=== PATIENT | male | born 1980 | race Caucasian/White ===

== ENCOUNTER 2018-06-10 12:35 | Emergency (ER) | payer MEDICAID, MEDICARE ==
[~2018-06-10] VITALS: Ht 180.3 cm; Wt 102.8 kg
[2018-06-10 12:54] VITALS: BP 110/69
== END 2018-06-10 13:16 | disposition home or self-care (01) ==
LOC: ED 12:45
DX: S01.01XD Laceration without foreign body of scalp, subsequent encounter (principal); X58.XXXD Exposure to other specified factors, subsequent encounter
CPT/HCPCS: 99281

== ENCOUNTER 2018-10-13 17:14 | Emergency (ER) | payer MEDICAID ==
[~2018-10-13] VITALS: Ht 180.3 cm; Wt 104.0 kg
[2018-10-13 17:17] VITALS: BP 130/93
== END 2018-10-13 19:23 | disposition home or self-care (01) ==
LOC: ED 19:05
DX: K02.9 Dental caries, unspecified (principal); K04.7 Periapical abscess without sinus; F17.200 Nicotine dependence, unspecified, uncomplicated
CPT/HCPCS: 99283

== ENCOUNTER 2018-11-04 23:07 | Emergency (ER) | payer MEDICAID ==
[~2018-11-04] VITALS: Ht 180.3 cm; Wt 99.0 kg
[2018-11-04 23:10] VITALS: BP 127/83
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
== END 2018-11-05 01:00 | disposition home or self-care (01) ==
LOC: ED 11-05 00:33
DX: F10.129 Alcohol abuse with intoxication, unspecified (principal); Z72.9 Problem related to lifestyle, unspecified; F20.9 Schizophrenia, unspecified; F17.200 Nicotine dependence, unspecified, uncomplicated
CPT/HCPCS: 99283

== ENCOUNTER 2019-04-11 20:00 | Inpatient (IN) | payer MEDICARE ==
[~2019-04-11] VITALS: Ht 180.3 cm; Wt 100.0 kg
[~2019-04-11 20:00] MED LIST: DIVA500T2 PO
[2019-04-11] MEDS ORDERED: SODIUM CHLORIDE 0.9% 1,000ML IVBOLUS ONE ×2 (20:30→22:30)
[2019-04-11] MEDS ORDERED: SODIUM CHLORIDE FLUSH 10ML SYR IVF ONE (20:30)
--- NOTE | 2019-04-11 20:32 | NUR ---
PT BROUGHT BACK TO T4 FROM TRIAGE. PT DIAPHORETIC WITH LOW BP. PT IN HOSPITAL GOWN. IV AND FLUIDS INFUSING. LABS DRAWN WITH IV START. STRAIGHT CATH DONE FOR URINE SAMPLE. PT BP HAS IMPROVED, SEE CHARTED. WILL CONTINUE TO MONITOR. BILAT BEDRAILS UP.
[2019-04-11 20:54] LABS: CULTURE INDICATED? YES; MICROSCOPIC INDICATED
[2019-04-11 20:54] LABS: ALANINE AMINOTRANSFERASE 225 U/L (12-78); ALBUMIN 3.4 g/dL (3.4-5.0); ANION GAP 10 mmol/L (5-15); CALCIUM 8.2 mg/dL (8.5-10.1); CHLORIDE 100 mmol/L (98-107); CREATININE 2.18 mg/dL (0.7-1.3)
--- NOTE | 2019-04-11 20:55 | NUR ---
pt going to ct.
[2019-04-11 20:57] LABS: ALKALINE PHOSPHATASE 362 U/L (45-117); BILIRUBIN,TOTAL 4.2 mg/dL (0.2-1.0); MEAN CORPUSCULAR HEMOGLOBIN 30.8 pg (27.5-34.5); MEAN CORPUSCULAR HGB CONC 33.7 g/dL (33.2-36.2); MEAN CORPUSCULAR VOLUME 91.2 fL (81-97); RED BLOOD COUNT 5.57 x10^6/uL (4.38-5.82); RED CELL DISTRIBUTION WIDTH 14.3 % (9.4-14.8); TOTAL PROTEIN 7.6 g/dL (6.4-8.2)
[2019-04-11 20:59] LABS: SALICYLATE LEVEL < 1.7 mg/dL (2.8-20.0)
[2019-04-11 21:00] LABS: AMPHETAMINE SCREEN, URINE Negative (Negative); BARBITURATE SCREEN, URINE Negative (Negative); BENZODIAZEPINE SCREEN, URINE Negative (Negative); CANNABINOID SCREEN, URINE Negative (Negative); COCAINE SCREEN, URINE Negative (Negative); METHADONE SCREEN, URINE Negative (Negative); OPIATE SCREEN, URINE Negative (Negative)
[2019-04-11 21:06] LABS: BASOPHILS # (AUTO) 0.01 x10^3/uL (0-0.1); BASOPHILS % (AUTO) 0 % (0-1); EOSINOPHILS # (AUTO) 0.01 x10^3/uL (0-0.4); EOSINOPHILS % (AUTO) 0 % (1-7); LYMPHOCYTES % (AUTO) 6 % (22-44); MD SCAN; MONOCYTES # (AUTO) 0.14 x10^3/uL (0.2-0.8); MONOCYTES % (AUTO) 3 % (2-9); NEUTROPHILS # (AUTO) 4.44 x10^3/uL (1.8-6.8); NEUTROPHILS % (AUTO) 91 % (42-75); PLATELET COUNT 81 x10^3/uL (130-400)
--- NOTE | 2019-04-11 21:15 | NUR ---
PT BACK FROM CT. PT FOUND TO HAVE BEDBUGS IN CT. CONTACT PRECAUTIONS PLACED ON T4. VITALS RESUMED.
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
[2019-04-11] MEDS ORDERED: CEFTRIAXONE PMX 1GM/50ML 50 ML IV ONE (21:30)
--- NOTE | 2019-04-11 21:50 | NUR ---
PT BP TRENDING BACK DOWN, SEE VITALS. ERP AWARE, PT IN [place] POSITION. BLOOD CULTURES HAVE BEEN DRAWN. ALL PT BELONGINGS HAVE BEEN BAGGED.
[2019-04-11] MEDS ORDERED: CEFTRIAXONE PMX 1GM/50ML 50 ML ONE (21:52)
[2019-04-11] MEDS ORDERED: ONDANSETRON 2MG/ML, 2ML ONE (21:52)
[2019-04-11] MEDS ORDERED: ONDANSETRON 2MG/ML, 2ML IVPush ONE (22:00)
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
--- NOTE | 2019-04-11 22:50 | NUR ---
PT GIVEN URINAL. PT VOIDED ABOUT 600CC OF [place] URINE.
--- NOTE | 2019-04-11 23:19 | NUR ---
REPORT TO TANISHA HUMPHRIES
--- NOTE | 2019-04-11 23:20 | NUR ---
PT BP 84/49, SEE CHARTED. ERP MADE AWARE. NO ORDERS AT THIS TIME. CONTINUE TO MONITOR PT.
--- NOTE | 2019-04-11 23:23 | NUR ---
TANISHA HUMPHRIES CALLED TO SAY PT UNABLE TO GO UP WITHOUT SHOWER. CHARGE MADE AWARE AND PT AWARE HE NEEDS TO SHOWER BEFORE GOING UP. HOSPITALIST IN ROOM WITH PT.
[2019-04-12] VITALS (7 sets, daily range): BP systolic 84–105; BP diastolic 51–70
[2019-04-12] MEDS ORDERED: HEPARIN 5,000 UNITS/ML, 1ML SQ SCH
[2019-04-12] MEDS ORDERED: THIAMINE 200 MG in DEXTROSE 5% 50 ML IVPB ONE
[2019-04-12] MEDS ORDERED: CEFTRIAXONE PMX 1GM/50ML 50 ML IV SCH
[2019-04-12 00:17] LABS: INTERNATIONAL NORMALIZED RATIO 1.18 (0.93-1.1); PROTHROMBIN TIME 12.3 Seconds (9.6-11.5)
[2019-04-12] MEDS ORDERED: PERMETHRIN CRM 5%, 60GM TP SCH (01:00)
[2019-04-12] MEDS: SODIUM CHLORIDE 0.9% 1,000 ML IV SCH ×2 (02:35→08:38)
[2019-04-12 04:54] LABS: CREATININE,URINE RANDOM 68.7 mg/dL
[2019-04-12 06:47] LABS: ALBUMIN 2.8 g/dL (3.4-5.0); ANION GAP 11 mmol/L (5-15); CALCIUM 7.3 mg/dL (8.5-10.1); CHLORIDE 104 mmol/L (98-107)
[2019-04-12 06:51] LABS: ALANINE AMINOTRANSFERASE 210 U/L (12-78); ALKALINE PHOSPHATASE 282 U/L (45-117); CREATININE 1.47 mg/dL (0.7-1.3); TOTAL PROTEIN 6.1 g/dL (6.4-8.2)
[2019-04-12 07:52] LABS: MEAN CORPUSCULAR HEMOGLOBIN 30.8 pg (27.5-34.5); MEAN CORPUSCULAR HGB CONC 33.7 g/dL (33.2-36.2); MEAN CORPUSCULAR VOLUME 91.4 fL (81-97); MEAN PLATELET VOLUME 10.5 fL (7.4-10.4); PLATELET COUNT 61 x10^3/uL (130-400); RED BLOOD COUNT 5.05 x10^6/uL (4.38-5.82); RED CELL DISTRIBUTION WIDTH 14.6 % (9.4-14.8)
[2019-04-12 07:53] LABS: MD YES
[2019-04-12 07:56] LABS: BANDS%(MANUAL) 42 % (0-7); LYMPH#(MANUAL) 0.23 x10^3/uL (1-3.4); LYMPHS% (MANUAL) 6 % (22-44); MONOS#(MANUAL) 0.11 x10^3/uL (0.3-2.7); MONOS% (MANUAL) 3 % (2-9); SEG#(MANUAL) 1.86 x10^3/uL (1.8-6.8); SEGS% (MANUAL) 49 % (42-75)
[2019-04-12 07:57] LABS: <PLATELET ESTIMATE> DECREASED; <PLT MORPHOLOGY> NORMAL PLT MORPH; <RBC MORPHOLOGY> NORMAL
[2019-04-12] MEDS: MULTIVITAMINS/MINERALS TABLET PO SCH (08:38)
[2019-04-12] MEDS: FOLIC ACID 1 MG TABLET PO SCH (09:00)
[2019-04-12] MEDS: LACTATED RINGERS 1,000 ML IV SCH ×2 (11:47→18:01)
[2019-04-12] MEDS: OXYcodone IR 5MG TABLET PO PRN ×2 (14:49→20:19)
[2019-04-12] MEDS: CEFTRIAXONE PMX 2GM/50ML 50 ML IV SCH (14:50)
[2019-04-13] MEDS: OXYcodone IR 5MG TABLET PO PRN ×3 (00:31→20:29)
[2019-04-13 02:01] VITALS: BP 93/58
[2019-04-13] MEDS: ONDANSETRON 2MG/ML, 2ML IVPush PRN ×2 (03:35→22:35)
[2019-04-13 06:04] LABS: ALANINE AMINOTRANSFERASE 183 U/L (12-78); ALBUMIN 2.5 g/dL (3.4-5.0); ANION GAP 10 mmol/L (5-15); CALCIUM 7.2 mg/dL (8.5-10.1); CHLORIDE 99 mmol/L (98-107); CREATININE 1.12 mg/dL (0.7-1.3)
[2019-04-13 06:06] LABS: ALKALINE PHOSPHATASE 256 U/L (45-117); BILIRUBIN,TOTAL 4.1 mg/dL (0.2-1.0); TOTAL PROTEIN 5.5 g/dL (6.4-8.2)
[2019-04-13 06:18] LABS: MEAN CORPUSCULAR HEMOGLOBIN 30.6 pg (27.5-34.5); MEAN PLATELET VOLUME 11.1 fL (7.4-10.4); PLATELET COUNT 65 x10^3/uL (130-400); RED BLOOD COUNT 4.65 x10^6/uL (4.38-5.82); RED CELL DISTRIBUTION WIDTH 14.3 % (9.4-14.8)
[2019-04-13 06:19] LABS: MD YES
[2019-04-13 06:22] LABS: BAND#(MANUAL) 1.33 x10^3/uL; BANDS%(MANUAL) 39 % (0-7); REACTIVE LYMPHS # (MANUAL) 0.07 x10^3/uL (0-0); REACTIVE LYMPHS % (MANUAL) 2 % (0-0); SEGS% (MANUAL) 47 % (42-75)
[2019-04-13 06:23] LABS: <PLATELET ESTIMATE> DECREASED; <RBC MORPHOLOGY> NORMAL; LARGE PLATELETS 1+; LYMPH#(MANUAL) 0.37 x10^3/uL (1-3.4); LYMPHS% (MANUAL) 11 % (22-44); MONOS#(MANUAL) 0.03 x10^3/uL (0.3-2.7); MONOS% (MANUAL) 1 % (2-9)
[2019-04-13 06:24] LABS: PMNS WITH VACUOLES 1+
[2019-04-13 06:58] VITALS: BP 100/65
[2019-04-13] MEDS: THIAMINE 100MG TABLET PO SCH (08:39)
[2019-04-13] MEDS: FOLIC ACID 1 MG TABLET PO SCH (08:39)
[2019-04-13] MEDS: MULTIVITAMINS/MINERALS TABLET PO SCH (08:39)
[2019-04-13] MEDS: SODIUM CHLORIDE 0.9% 1,000 ML IV SCH (08:40)
[2019-04-13] MEDS ORDERED: LORazepam 2 MG/ML, 1ML IVPush PRN (10:30)
[2019-04-13 13:42] VITALS: BP 98/64
[2019-04-13] MEDS ORDERED: POTASSIUM CHLORIDE 20 MEQ TAB.ER.PRT PO ONE (14:30)
[2019-04-13] MEDS: CEFTRIAXONE PMX 2GM/50ML 50 ML IV SCH (15:34)
[2019-04-13] MEDS ORDERED: OMNIPAQUE 350 MG/ML, 100ML BOTTLE ONE (16:57)
[2019-04-13 19:15] VITALS: BP 105/66
[2019-04-14] MEDS: OXYcodone IR 5MG TABLET PO PRN ×3 (00:22→14:30)
[2019-04-14] MEDS ORDERED: DIPHENHYDRAMINE 25 MG CAPSULE PO ONE (00:30)
[2019-04-14 01:12] VITALS: BP 94/58
[2019-04-14] MEDS: SODIUM CHLORIDE 0.9% 1,000 ML IV SCH ×2 (03:30→13:03)
[2019-04-14 06:59] VITALS: BP 97/59
[2019-04-14 07:05] LABS: MEAN CORPUSCULAR HEMOGLOBIN 30.5 pg (27.5-34.5); MEAN CORPUSCULAR HGB CONC 33.9 g/dL (33.2-36.2); MEAN CORPUSCULAR VOLUME 89.8 fL (81-97); RED BLOOD COUNT 4.76 x10^6/uL (4.38-5.82); RED CELL DISTRIBUTION WIDTH 14.8 % (9.4-14.8)
[2019-04-14 07:11] LABS: ALBUMIN 2.4 g/dL (3.4-5.0); CALCIUM 7.5 mg/dL (8.5-10.1); CHLORIDE 98 mmol/L (98-107)
[2019-04-14 07:17] LABS: ALANINE AMINOTRANSFERASE 188 U/L (12-78); ALKALINE PHOSPHATASE 301 U/L (45-117); ANION GAP 10 mmol/L (5-15); BILIRUBIN,TOTAL 5.9 mg/dL (0.2-1.0); CREATININE 0.75 mg/dL (0.7-1.3); TOTAL PROTEIN 5.4 g/dL (6.4-8.2)
[2019-04-14 07:31] LABS: MD YES; MEAN PLATELET VOLUME 10.3 fL (7.4-10.4); PLATELET COUNT 68 x10^3/uL (130-400)
[2019-04-14 07:37] LABS: BAND#(MANUAL) 0.62 x10^3/uL; BANDS%(MANUAL) 16 % (0-7); LYMPHS% (MANUAL) 23 % (22-44); MONOS#(MANUAL) 0.47 x10^3/uL (0.3-2.7); MONOS% (MANUAL) 12 % (2-9); REACTIVE LYMPHS # (MANUAL) 0.04 x10^3/uL (0-0); REACTIVE LYMPHS % (MANUAL) 1 % (0-0); SEG#(MANUAL) 1.87 x10^3/uL (1.8-6.8); SEGS% (MANUAL) 48 % (42-75)
[2019-04-14 07:38] LABS: <PLATELET ESTIMATE> DECREASED; <PLT MORPHOLOGY> NORMAL PLT MORPH; <RBC MORPHOLOGY> NORMAL
[2019-04-14] MEDS: THIAMINE 100MG TABLET PO SCH (08:05)
[2019-04-14] MEDS: FOLIC ACID 1 MG TABLET PO SCH (08:05)
[2019-04-14] MEDS: MULTIVITAMINS/MINERALS TABLET PO SCH (08:05)
[2019-04-14] MEDS ORDERED: POTASSIUM CHLORIDE 20 MEQ TAB.ER.PRT PO ONE (10:00)
[2019-04-14] MEDS ORDERED: GABAPENTIN 100 MG CAPSULE PO PRN (10:00)
[2019-04-14 12:25] VITALS: BP 102/68
[2019-04-14] MEDS: CEFTRIAXONE PMX 2GM/50ML 50 ML IV SCH (16:28)
[2019-04-14 19:21] VITALS: BP 106/67
[2019-04-15 01:39] VITALS: BP 98/62
[2019-04-15] MEDS: SODIUM CHLORIDE 0.9% 1,000 ML IV SCH ×2 (05:45→19:44)
[2019-04-15 06:22] LABS: MEAN CORPUSCULAR HEMOGLOBIN 30.6 pg (27.5-34.5); MEAN CORPUSCULAR HGB CONC 34.3 g/dL (33.2-36.2); MEAN CORPUSCULAR VOLUME 89.2 fL (81-97); MEAN PLATELET VOLUME 10.3 fL (7.4-10.4); PLATELET COUNT 72 x10^3/uL (130-400); RED BLOOD COUNT 4.65 x10^6/uL (4.38-5.82); RED CELL DISTRIBUTION WIDTH 14.7 % (9.4-14.8)
[2019-04-15 06:25] LABS: ALBUMIN 2.4 g/dL (3.4-5.0); ANION GAP 6 mmol/L (5-15); CALCIUM 7.6 mg/dL (8.5-10.1); CHLORIDE 98 mmol/L (98-107)
[2019-04-15 06:29] LABS: ALANINE AMINOTRANSFERASE 250 U/L (12-78); ALKALINE PHOSPHATASE 375 U/L (45-117); BILIRUBIN,TOTAL 5.9 mg/dL (0.2-1.0); CREATININE 0.78 mg/dL (0.7-1.3); TOTAL PROTEIN 5.5 g/dL (6.4-8.2)
[2019-04-15 06:55] LABS: MD YES
[2019-04-15 06:58] LABS: <PLATELET ESTIMATE> DECREASED; <PLT MORPHOLOGY> NORMAL PLT MORPH; <RBC MORPHOLOGY> NORMAL; BASOS#(MANUAL) 0.07 x10^3/uL (0-0.1); BASOS% (MANUAL) 2 % (0-1); LYMPH#(MANUAL) 1.66 x10^3/uL (1-3.4); LYMPHS% (MANUAL) 46 % (22-44); MONOS#(MANUAL) 0.07 x10^3/uL (0.3-2.7); MONOS% (MANUAL) 2 % (2-9); SEGS% (MANUAL) 50 % (42-75)
[2019-04-15] MEDS ORDERED: LORazepam 2 MG/ML, 1ML IVPush ONE (08:00)
[2019-04-15 08:22] VITALS: BP 104/66
[2019-04-15] MEDS: MULTIVITAMINS/MINERALS TABLET PO SCH (11:43)
[2019-04-15] MEDS: FOLIC ACID 1 MG TABLET PO SCH (11:43)
[2019-04-15] MEDS: THIAMINE 100MG TABLET PO SCH (11:43)
[2019-04-15 12:12] VITALS: BP 105/65
[2019-04-15] MEDS: OXYcodone IR 5MG TABLET PO PRN (17:35)
[2019-04-15 18:40] VITALS: BP 102/69
[2019-04-16 01:13] VITALS: BP 101/67
[2019-04-16 06:52] VITALS: BP 114/74
[2019-04-16 08:05] LABS: MEAN CORPUSCULAR HEMOGLOBIN 29.6 pg (27.5-34.5); MEAN CORPUSCULAR HGB CONC 33.9 g/dL (33.2-36.2); MEAN CORPUSCULAR VOLUME 87.2 fL (81-97); MEAN PLATELET VOLUME 10.1 fL (7.4-10.4); PLATELET COUNT 100 x10^3/uL (130-400); RED BLOOD COUNT 4.61 x10^6/uL (4.38-5.82); RED CELL DISTRIBUTION WIDTH 14.5 % (9.4-14.8)
[2019-04-16 08:08] LABS: ALBUMIN 2.3 g/dL (3.4-5.0); ANION GAP 5 mmol/L (5-15); CALCIUM 7.6 mg/dL (8.5-10.1); CHLORIDE 101 mmol/L (98-107); CREATININE 0.59 mg/dL (0.7-1.3)
[2019-04-16 09:01] LABS: BASOPHILS # (AUTO) 0.01 x10^3/uL (0-0.1); BASOPHILS % (AUTO) 0 % (0-1); EOSINOPHILS # (AUTO) 0.06 x10^3/uL (0-0.4); EOSINOPHILS % (AUTO) 1 % (1-7); LYMPHOCYTES # (AUTO) 1.53 x10^3/uL (1-3.4); LYMPHOCYTES % (AUTO) 35 % (22-44); MD SCAN; MONOCYTES # (AUTO) 0.54 x10^3/uL (0.2-0.8); MONOCYTES % (AUTO) 12 % (2-9); NEUTROPHILS # (AUTO) 2.24 x10^3/uL (1.8-6.8); NEUTROPHILS % (AUTO) 51 % (42-75)
[2019-04-16] MEDS: SODIUM CHLORIDE 0.9% 1,000 ML IV SCH ×2 (09:08→21:25)
[2019-04-16] MEDS: MULTIVITAMINS/MINERALS TABLET PO SCH (10:30)
[2019-04-16] MEDS: FOLIC ACID 1 MG TABLET PO SCH (10:30)
[2019-04-16] MEDS: THIAMINE 100MG TABLET PO SCH (10:31)
[2019-04-16 12:58] VITALS: BP 117/69
[2019-04-16 14:20] LABS: ALANINE AMINOTRANSFERASE 335 U/L (12-78); BILIRUBIN, DIRECT 2.6 mg/dL (0.1-0.2)
[2019-04-16 14:23] LABS: ALKALINE PHOSPHATASE 412 U/L (45-117); BILIRUBIN,INDIRECT 0.7 mg/dL (0.0-2.0); BILIRUBIN,TOTAL 3.3 mg/dL (0.2-1.0); TOTAL PROTEIN 5.7 g/dL (6.4-8.2)
[2019-04-16] MEDS ORDERED: POTASSIUM CHLORIDE 20 MEQ TAB.ER.PRT PO ONE (18:00)
[2019-04-16 19:37] VITALS: BP 109/68
[2019-04-16] MEDS: OXYcodone IR 5MG TABLET PO PRN (19:56)
[2019-04-17 01:24] VITALS: BP 104/67
[2019-04-17 07:41] VITALS: BP 113/79
[2019-04-17 08:20] LABS: MEAN CORPUSCULAR HEMOGLOBIN 29.6 pg (27.5-34.5); MEAN CORPUSCULAR HGB CONC 33.7 g/dL (33.2-36.2); MEAN CORPUSCULAR VOLUME 87.9 fL (81-97); MEAN PLATELET VOLUME 9.8 fL (7.4-10.4); PLATELET COUNT 132 x10^3/uL (130-400); RED BLOOD COUNT 4.58 x10^6/uL (4.38-5.82); RED CELL DISTRIBUTION WIDTH 14.3 % (9.4-14.8)
[2019-04-17 08:21] LABS: INTERNATIONAL NORMALIZED RATIO 0.98 (0.93-1.1); PROTHROMBIN TIME 10.3 Seconds (9.6-11.5)
[2019-04-17 08:24] LABS: ALANINE AMINOTRANSFERASE 391 U/L (12-78); ALBUMIN 2.4 g/dL (3.4-5.0); ANION GAP 8 mmol/L (5-15); CALCIUM 7.5 mg/dL (8.5-10.1); CHLORIDE 103 mmol/L (98-107); CREATININE 0.51 mg/dL (0.7-1.3)
[2019-04-17 08:26] LABS: ALKALINE PHOSPHATASE 365 U/L (45-117); BILIRUBIN,TOTAL 1.8 mg/dL (0.2-1.0); TOTAL PROTEIN 5.9 g/dL (6.4-8.2)
[2019-04-17] MEDS: MULTIVITAMINS/MINERALS TABLET PO SCH (08:26)
[2019-04-17] MEDS: THIAMINE 100MG TABLET PO SCH (08:26)
[2019-04-17] MEDS: FOLIC ACID 1 MG TABLET PO SCH (08:26)
[2019-04-17 08:52] LABS: MD YES
[2019-04-17 08:54] LABS: BAND#(MANUAL) 0.05 x10^3/uL; BANDS%(MANUAL) 1 % (0-7); EOS% (MANUAL) 2 % (1-7); LYMPH#(MANUAL) 1.12 x10^3/uL (1-3.4); LYMPHS% (MANUAL) 22 % (22-44); MONOS#(MANUAL) 0.46 x10^3/uL (0.3-2.7); MONOS% (MANUAL) 9 % (2-9); SEG#(MANUAL) 3.37 x10^3/uL (1.8-6.8); SEGS% (MANUAL) 66 % (42-75)
[2019-04-17 08:55] LABS: <PLATELET ESTIMATE> ADEQUATE; <PLT MORPHOLOGY> NORMAL PLT MORPH
[2019-04-17 08:56] LABS: POLYCHROMASIA 1+
[2019-04-17] MEDS: SODIUM CHLORIDE 0.9% 1,000 ML IV SCH (10:50)
[2019-04-17 15:56] VITALS: BP 108/71
[2019-04-17 21:06] VITALS: BP 103/66
[2019-04-18] MEDS: SODIUM CHLORIDE 0.9% 1,000 ML IV SCH ×2 (00:45→13:50)
[2019-04-18] MEDS: OXYcodone IR 5MG TABLET PO PRN (00:51)
[2019-04-18 02:17] VITALS: BP 121/78
[2019-04-18 05:24] LABS: BASOPHILS # (AUTO) 0.03 x10^3/uL (0-0.1); BASOPHILS % (AUTO) 1 % (0-1); EOSINOPHILS # (AUTO) 0.18 x10^3/uL (0-0.4); EOSINOPHILS % (AUTO) 3 % (1-7); LYMPHOCYTES # (AUTO) 1.57 x10^3/uL (1-3.4); LYMPHOCYTES % (AUTO) 26 % (22-44); MD NO; MEAN CORPUSCULAR HEMOGLOBIN 29.6 pg (27.5-34.5); MEAN CORPUSCULAR HGB CONC 33.5 g/dL (33.2-36.2); MEAN CORPUSCULAR VOLUME 88.5 fL (81-97); MEAN PLATELET VOLUME 9.4 fL (7.4-10.4); MONOCYTES # (AUTO) 0.76 x10^3/uL (0.2-0.8); MONOCYTES % (AUTO) 12 % (2-9); NEUTROPHILS # (AUTO) 3.63 x10^3/uL (1.8-6.8); NEUTROPHILS % (AUTO) 59 % (42-75); PLATELET COUNT 175 x10^3/uL (130-400); RED BLOOD COUNT 4.56 x10^6/uL (4.38-5.82); RED CELL DISTRIBUTION WIDTH 15.1 % (9.4-14.8)
[2019-04-18 05:29] LABS: ALANINE AMINOTRANSFERASE 374 U/L (12-78); ALBUMIN 2.4 g/dL (3.4-5.0); ANION GAP 6 mmol/L (5-15); CALCIUM 7.7 mg/dL (8.5-10.1); CHLORIDE 104 mmol/L (98-107); CREATININE 0.64 mg/dL (0.7-1.3)
[2019-04-18 05:31] LABS: ALKALINE PHOSPHATASE 302 U/L (45-117); BILIRUBIN,TOTAL 1.4 mg/dL (0.2-1.0); TOTAL PROTEIN 5.9 g/dL (6.4-8.2)
[2019-04-18 06:58] VITALS: BP 110/76
[2019-04-18] MEDS: THIAMINE 100MG TABLET PO SCH (07:51)
[2019-04-18] MEDS: FOLIC ACID 1 MG TABLET PO SCH (07:51)
[2019-04-18] MEDS: MULTIVITAMINS/MINERALS TABLET PO SCH (07:51)
[2019-04-18 12:22] VITALS: BP 109/73
[2019-04-18 20:15] VITALS: BP 115/75
[2019-04-18] MEDS ORDERED: DIVALPROEX 500 MG TABLET.DR PO SCH (21:00)
[2019-04-18] MEDS ORDERED: QUETIAPINE 100MG TABLET PO SCH (21:00)
[2019-04-19 00:49] VITALS: BP 95/64
[2019-04-19] MEDS: SODIUM CHLORIDE 0.9% 1,000 ML IV SCH (02:07)
[2019-04-19 04:12] VITALS: BP 104/61
[2019-04-19 05:17] LABS: ALBUMIN 2.6 g/dL (3.4-5.0); ANION GAP 3 mmol/L (5-15); CALCIUM 8.3 mg/dL (8.5-10.1); CHLORIDE 107 mmol/L (98-107)
[2019-04-19 05:23] LABS: ALANINE AMINOTRANSFERASE 304 U/L (12-78); ALKALINE PHOSPHATASE 274 U/L (45-117); BILIRUBIN,TOTAL 1.4 mg/dL (0.2-1.0); CREATININE 0.82 mg/dL (0.7-1.3); MEAN CORPUSCULAR HEMOGLOBIN 30.3 pg (27.5-34.5); MEAN CORPUSCULAR HGB CONC 33.8 g/dL (33.2-36.2); MEAN CORPUSCULAR VOLUME 89.5 fL (81-97); MEAN PLATELET VOLUME 9.2 fL (7.4-10.4); PLATELET COUNT 220 x10^3/uL (130-400); RED BLOOD COUNT 4.52 x10^6/uL (4.38-5.82); RED CELL DISTRIBUTION WIDTH 15.1 % (9.4-14.8); TOTAL PROTEIN 6.5 g/dL (6.4-8.2)
[2019-04-19 05:55] LABS: BASOPHILS # (AUTO) 0.01 x10^3/uL (0-0.1); BASOPHILS % (AUTO) 0 % (0-1); EOSINOPHILS # (AUTO) 0.18 x10^3/uL (0-0.4); EOSINOPHILS % (AUTO) 3 % (1-7); LYMPHOCYTES # (AUTO) 1.64 x10^3/uL (1-3.4); LYMPHOCYTES % (AUTO) 24 % (22-44); MD SCAN; MONOCYTES # (AUTO) 1.16 x10^3/uL (0.2-0.8); MONOCYTES % (AUTO) 17 % (2-9); NEUTROPHILS # (AUTO) 3.88 x10^3/uL (1.8-6.8); NEUTROPHILS % (AUTO) 57 % (42-75)
[2019-04-19 07:21] VITALS: BP 154/80
[2019-04-19] MEDS: THIAMINE 100MG TABLET PO SCH (08:10)
[2019-04-19] MEDS: MULTIVITAMINS/MINERALS TABLET PO SCH (08:10)
[2019-04-19] MEDS: FOLIC ACID 1 MG TABLET PO SCH (08:10)
[2019-04-19 12:57] VITALS: BP 100/65
[2019-04-19] MEDS ORDERED: FOLI-17 PO (15:31)
[2019-04-19] MEDS ORDERED: MULT-484 PO (15:31)
[2019-04-19] MEDS ORDERED: OXYC5TAB3 PO (15:31)
[2019-04-19] MEDS ORDERED: LORA2VIA6 IVPush (15:31)
[2019-04-19] MEDS ORDERED: THIA100T67 PO (15:31)
[2019-04-19] MEDS ORDERED: GABA-826 PO (15:31)
[2019-04-19] MEDS ORDERED: PERM60CR17 TP (15:31)
== END 2019-04-19 17:29 | DRG 871 ==
LOC: ED 20:17 → EDIP 22:47 → 3NE 04-12 00:32 → 4WST 04-14 11:55 → 4EST 04-18 00:19
PROVIDERS: ADMIT Family Medicine; ATTEND Family Medicine
DX: A41.9 Sepsis, unspecified organism (principal); R65.21 Severe sepsis with septic shock; E87.1 Hypo-osmolality and hyponatremia; N17.9 Acute kidney failure, unspecified; B17.9 Acute viral hepatitis, unspecified; J98.11 Atelectasis; Z88.8 Allergy status to other drugs, medicaments and biological substances; B85.2 Pediculosis, unspecified; B88.8 Other specified infestations; D69.6 Thrombocytopenia, unspecified; D73.5 Infarction of spleen; E86.0 Dehydration; F10.10 Alcohol abuse, uncomplicated; Y90.9 Presence of alcohol in blood, level not specified; F12.90 Cannabis use, unspecified, uncomplicated; F15.10 Other stimulant abuse, uncomplicated; F17.210 Nicotine dependence, cigarettes, uncomplicated; F20.9 Schizophrenia, unspecified; Z71.51 Drug abuse counseling and surveillance of drug abuser; F31.9 Bipolar disorder, unspecified; F90.9 Attention-deficit hyperactivity disorder, unspecified type; G40.909 Epilepsy, unspecified, not intractable, without status epilepticus; K44.9 Diaphragmatic hernia without obstruction or gangrene; K72.90 Hepatic failure, unspecified without coma; N30.90 Cystitis, unspecified without hematuria; T39.312A Poisoning by propionic acid derivatives, intentional self-harm, initial encounter; T39.395A Adverse effect of other nonsteroidal anti-inflammatory drugs [NSAID], initial encounter; Z59.0 Homelessness; Z91.5 Personal history of self-harm; Z98.2 Presence of cerebrospinal fluid drainage device; Y92.89 Other specified places as the place of occurrence of the external cause
CPT/HCPCS: 36415; 70450; 74177; 74181; 76700; 80053; 80069; 80074; 80076; 80164; 80307; 81001; 82436; 82533; 82570; 82962; 83605; 83690; 83735; 84100; 84133; 84300; 85025; 85610; 87040; 87086; 87806; 93005; 93306; 99285; G0378; J0696; J1644; J2405; J3411; Q9967; G0475; J2060; J7030; J7120; Q0163

== ENCOUNTER 2019-04-19 16:08 | Inpatient (IN) | payer MEDICARE ==
[~2019-04-19] VITALS: Ht 180.3 cm; Wt 90.7 kg
[~2019-04-19 16:08] MED LIST changes: +FOLI-17 PO; +GABA-826 PO; +LORA2VIA6 IVPush; +MULT-484 PO; +OXYC5TAB3 PO; +PERM60CR17 TP; +THIA100T67 PO
[2019-04-19] MEDS ORDERED: POLYETHYLENE GLYCOL 17 GM PACKET PO PRN (16:30)
[2019-04-19] MEDS ORDERED: BISACODYL 10 MG SUPP PR PRN (16:30)
[2019-04-19] MEDS ORDERED: ONDANSETRON ODT 4 MG PO PRN (16:30)
[2019-04-19 17:19] VITALS: BP_SYST 101; BP_SYST 107; BP_DIAS 66; BP_DIAS 68
[2019-04-19 17:50] VITALS: BP 107/68
[2019-04-19] MEDS ORDERED: PLEASE ENTER HEIGHT AND WEIGHT MC SCH (18:00)
[2019-04-19 19:13] VITALS: BP 122/79
[2019-04-20 05:54] LABS: ALBUMIN 2.7 g/dL (3.4-5.0); ANION GAP 7 mmol/L (5-15); CALCIUM 8.2 mg/dL (8.5-10.1); CHLORIDE 106 mmol/L (98-107)
[2019-04-20 05:55] LABS: BASOPHILS # (AUTO) 0.05 x10^3/uL (0-0.1); BASOPHILS % (AUTO) 1 % (0-1); EOSINOPHILS # (AUTO) 0.13 x10^3/uL (0-0.4); EOSINOPHILS % (AUTO) 2 % (1-7); LYMPHOCYTES # (AUTO) 1.41 x10^3/uL (1-3.4); LYMPHOCYTES % (AUTO) 24 % (22-44); MD NO; MEAN CORPUSCULAR HEMOGLOBIN 29.5 pg (27.5-34.5); MEAN CORPUSCULAR HGB CONC 33.2 g/dL (33.2-36.2); MEAN CORPUSCULAR VOLUME 88.7 fL (81-97); MEAN PLATELET VOLUME 8.2 fL (7.4-10.4); MONOCYTES # (AUTO) 0.75 x10^3/uL (0.2-0.8); MONOCYTES % (AUTO) 13 % (2-9); NEUTROPHILS % (AUTO) 60 % (42-75); PLATELET COUNT 270 x10^3/uL (130-400); RED BLOOD COUNT 4.71 x10^6/uL (4.38-5.82); RED CELL DISTRIBUTION WIDTH 15.2 % (9.4-14.8)
[2019-04-20 06:19] LABS: ALANINE AMINOTRANSFERASE 230 U/L (12-78); ALKALINE PHOSPHATASE 238 U/L (45-117); BILIRUBIN, DIRECT 0.8 mg/dL (0.1-0.2); BILIRUBIN,INDIRECT 0.3 mg/dL (0.0-2.0); BILIRUBIN,TOTAL 1.1 mg/dL (0.2-1.0); CHOLESTEROL, TOTAL 220 mg/dL (140-239); CREATININE 0.76 mg/dL (0.7-1.3); FREE T4 (FREE THYROXINE) 1.18 ng/dL (0.76-1.46); HDL CHOL % 9 % (26-37); HDL CHOLESTEROL (DIRECT) 20 mg/dL (40-60); LDL CHOLESTEROL,CALCULATED 150 mg/dL (54-169); LDL/HDL RATIO 7.5 (0.5-3.0); TOTAL PROTEIN 6.8 g/dL (6.4-8.2); TRIGLYCERIDES 248 mg/dL (50-200); VLDL CHOLESTEROL 50 mg/dL (0-25)
[2019-04-20 07:03] VITALS: BP 99/65
[2019-04-20 19:38] VITALS: BP 111/70
[2019-04-20] MEDS: ACAMPROSATE 333 MG TABLET.DR PO SCH (20:50)
[2019-04-21 07:10] VITALS: BP 100/65
[2019-04-21] MEDS: NICOTINE 7 MG/24 HR PATCH.TD24 TD SCH (08:11)
[2019-04-21] MEDS: ACAMPROSATE 333 MG TABLET.DR PO SCH ×3 (08:11→20:42)
[2019-04-21 09:11] LABS: ALBUMIN 3.1 g/dL (3.4-5.0); ANION GAP 5 mmol/L (5-15); CALCIUM 8.6 mg/dL (8.5-10.1); CHLORIDE 105 mmol/L (98-107)
[2019-04-21 09:14] LABS: ALANINE AMINOTRANSFERASE 169 U/L (12-78); ALKALINE PHOSPHATASE 228 U/L (45-117); BILIRUBIN,TOTAL 1.2 mg/dL (0.2-1.0); CREATININE 0.73 mg/dL (0.7-1.3); TOTAL PROTEIN 7.6 g/dL (6.4-8.2)
[2019-04-21] MEDS ORDERED: SERTRALINE 50MG TABLET ONE (16:20)
[2019-04-21] MEDS: SERTRALINE 50MG TABLET PO SCH (16:22)
[2019-04-21 19:51] VITALS: BP 97/62
[2019-04-22 04:58] LABS: ANION GAP 6 mmol/L (5-15); CALCIUM 8.6 mg/dL (8.5-10.1); CHLORIDE 105 mmol/L (98-107)
[2019-04-22 05:02] LABS: ALANINE AMINOTRANSFERASE 127 U/L (12-78); ALKALINE PHOSPHATASE 195 U/L (45-117); CREATININE 0.73 mg/dL (0.7-1.3); TOTAL PROTEIN 7.4 g/dL (6.4-8.2)
[2019-04-22 07:18] VITALS: BP 105/71
[2019-04-22] MEDS: ACAMPROSATE 333 MG TABLET.DR PO SCH ×3 (08:52→20:29)
[2019-04-22] MEDS: SERTRALINE 50MG TABLET PO SCH (08:53)
[2019-04-22] MEDS: NICOTINE 7 MG/24 HR PATCH.TD24 TD SCH (08:58)
[2019-04-22] MEDS: ACETAMINOPHEN 325 MG TABLET PO PRN (09:12)
[2019-04-22 19:36] VITALS: BP 102/63
[2019-04-22] MEDS: QUETIAPINE 25MG TABLET PO SCH (20:29)
[2019-04-23 07:14] LABS: ALANINE AMINOTRANSFERASE 99 U/L (12-78); ALBUMIN 3.3 g/dL (3.4-5.0); ANION GAP 8 mmol/L (5-15); CALCIUM 9.1 mg/dL (8.5-10.1); CHLORIDE 105 mmol/L (98-107); CREATININE 0.75 mg/dL (0.7-1.3)
[2019-04-23 07:16] LABS: ALKALINE PHOSPHATASE 187 U/L (45-117); TOTAL PROTEIN 7.9 g/dL (6.4-8.2)
[2019-04-23 07:23] VITALS: BP 96/63
[2019-04-23] MEDS: SERTRALINE 50MG TABLET PO SCH (09:22)
[2019-04-23] MEDS: ACAMPROSATE 333 MG TABLET.DR PO SCH ×3 (09:22→20:44)
[2019-04-23] MEDS: NICOTINE 7 MG/24 HR PATCH.TD24 TD SCH (09:22)
[2019-04-23 19:21] VITALS: BP 99/62
[2019-04-23] MEDS: DIVALPROEX 250 MG TAB.ER.24H PO SCH (20:44)
[2019-04-23] MEDS: QUETIAPINE 25MG TABLET PO SCH (20:44)
[2019-04-24 07:54] VITALS: BP 94/61
[2019-04-24] MEDS: DOCUSATE 100 MG CAPSULE PO PRN ×2 (08:55→10:01)
[2019-04-24] MEDS: SERTRALINE 50MG TABLET PO SCH (10:01)
[2019-04-24] MEDS: NICOTINE 7 MG/24 HR PATCH.TD24 TD SCH (10:01)
[2019-04-24] MEDS: ACAMPROSATE 333 MG TABLET.DR PO SCH ×3 (10:01→20:20)
[2019-04-24] MEDS: ACETAMINOPHEN 325 MG TABLET PO PRN (10:11)
[2019-04-24 19:32] VITALS: BP 100/67
[2019-04-24] MEDS: QUETIAPINE 25MG TABLET PO SCH (20:21)
[2019-04-24] MEDS: DIVALPROEX 250 MG TAB.ER.24H PO SCH (20:21)
[2019-04-25 05:51] LABS: ALBUMIN 3.4 g/dL (3.4-5.0); ANION GAP 7 mmol/L (5-15); CALCIUM 8.9 mg/dL (8.5-10.1); CHLORIDE 105 mmol/L (98-107)
[2019-04-25 05:54] LABS: ALANINE AMINOTRANSFERASE 66 U/L (12-78); ALKALINE PHOSPHATASE 161 U/L (45-117); BILIRUBIN,TOTAL 1.1 mg/dL (0.2-1.0); CREATININE 0.85 mg/dL (0.7-1.3); TOTAL PROTEIN 8.1 g/dL (6.4-8.2)
[2019-04-25 07:19] VITALS: BP 107/68
[2019-04-25] MEDS: SERTRALINE 50MG TABLET PO SCH (09:05)
[2019-04-25] MEDS: ACAMPROSATE 333 MG TABLET.DR PO SCH ×3 (09:05→20:03)
[2019-04-25] MEDS: NICOTINE 7 MG/24 HR PATCH.TD24 TD SCH (09:12)
[2019-04-25] MEDS: DIVALPROEX 250 MG TAB.ER.24H PO SCH (20:03)
[2019-04-25] MEDS: QUETIAPINE 25MG TABLET PO SCH (20:03)
[2019-04-25 20:05] VITALS: BP 102/65
[2019-04-26 07:30] VITALS: BP 111/70
[2019-04-26] MEDS: ACAMPROSATE 333 MG TABLET.DR PO SCH ×3 (09:23→21:08)
[2019-04-26] MEDS: SERTRALINE 50MG TABLET PO SCH (09:24)
[2019-04-26] MEDS: NICOTINE 7 MG/24 HR PATCH.TD24 TD SCH (09:24)
[2019-04-26 19:48] VITALS: BP 116/74
[2019-04-26] MEDS: QUETIAPINE 25MG TABLET PO SCH (21:08)
[2019-04-26] MEDS: ACETAMINOPHEN 325 MG TABLET PO PRN (21:08)
[2019-04-26] MEDS: DIVALPROEX 250 MG TAB.ER.24H PO SCH (21:08)
[2019-04-27 07:28] VITALS: BP 103/69
[2019-04-27] MEDS: ACAMPROSATE 333 MG TABLET.DR PO SCH ×3 (09:07→20:46)
[2019-04-27] MEDS: SERTRALINE 50MG TABLET PO SCH (09:07)
[2019-04-27] MEDS: NICOTINE 7 MG/24 HR PATCH.TD24 TD SCH (09:07)
[2019-04-27 19:42] VITALS: BP 101/64
[2019-04-27] MEDS: DIVALPROEX 250 MG TAB.ER.24H PO SCH (20:46)
[2019-04-27] MEDS: QUETIAPINE 25MG TABLET PO SCH (20:47)
[2019-04-28 07:11] VITALS: BP 113/74
[2019-04-28] MEDS: NICOTINE 7 MG/24 HR PATCH.TD24 TD SCH ×2 (08:25→08:26)
[2019-04-28] MEDS: ACAMPROSATE 333 MG TABLET.DR PO SCH ×3 (08:25→20:23)
[2019-04-28] MEDS: SERTRALINE 50MG TABLET PO SCH (08:25)
[2019-04-28 19:40] VITALS: BP 103/67
[2019-04-28] MEDS: DIVALPROEX 250 MG TAB.ER.24H PO SCH (20:23)
[2019-04-28] MEDS: QUETIAPINE 25MG TABLET PO SCH (20:23)
[2019-04-29 07:17] VITALS: BP 106/64
[2019-04-29] MEDS: SERTRALINE 50MG TABLET PO SCH (08:46)
[2019-04-29] MEDS: ACAMPROSATE 333 MG TABLET.DR PO SCH ×3 (08:46→20:20)
[2019-04-29] MEDS: NICOTINE 7 MG/24 HR PATCH.TD24 TD SCH (08:47)
[2019-04-29 19:42] VITALS: BP 102/64
[2019-04-29] MEDS: QUETIAPINE 25MG TABLET PO SCH (20:20)
[2019-04-29] MEDS: DIVALPROEX 250 MG TAB.ER.24H PO SCH (20:20)
[2019-04-30 07:31] VITALS: BP 107/64
[2019-04-30] MEDS: SERTRALINE 50MG TABLET PO SCH (08:35)
[2019-04-30] MEDS: ACAMPROSATE 333 MG TABLET.DR PO SCH ×3 (08:35→20:52)
[2019-04-30] MEDS: NICOTINE 7 MG/24 HR PATCH.TD24 TD SCH (08:36)
[2019-04-30 19:45] VITALS: BP 121/76
[2019-04-30] MEDS: DIVALPROEX 250 MG TAB.ER.24H PO SCH (20:52)
[2019-04-30] MEDS: QUETIAPINE 25MG TABLET PO SCH (20:53)
[2019-05-01 07:19] VITALS: BP 107/72
[2019-05-01] MEDS: SERTRALINE 50MG TABLET PO SCH (08:28)
[2019-05-01] MEDS: ACAMPROSATE 333 MG TABLET.DR PO SCH ×3 (08:28→21:02)
[2019-05-01] MEDS: NICOTINE 7 MG/24 HR PATCH.TD24 TD SCH (08:28)
[2019-05-01 20:12] VITALS: BP 119/76
[2019-05-01] MEDS: DIVALPROEX 250 MG TAB.ER.24H PO SCH (21:02)
[2019-05-01] MEDS: QUETIAPINE 25MG TABLET PO SCH (21:02)
[2019-05-02 07:21] VITALS: BP 109/65
[2019-05-02] MEDS: NICOTINE 7 MG/24 HR PATCH.TD24 TD SCH (09:26)
[2019-05-02] MEDS: ACAMPROSATE 333 MG TABLET.DR PO SCH ×3 (09:26→20:11)
[2019-05-02] MEDS: SERTRALINE 50MG TABLET PO SCH (09:26)
[2019-05-02 20:07] VITALS: BP 100/65
[2019-05-02] MEDS: DIVALPROEX 250 MG TAB.ER.24H PO SCH (20:12)
[2019-05-02] MEDS: QUETIAPINE 25MG TABLET PO SCH (20:12)
[2019-05-03 07:37] VITALS: BP 108/64
[2019-05-03] MEDS: ACAMPROSATE 333 MG TABLET.DR PO SCH ×3 (08:31→21:17)
[2019-05-03] MEDS: SERTRALINE 50MG TABLET PO SCH (08:31)
[2019-05-03] MEDS: NICOTINE 7 MG/24 HR PATCH.TD24 TD SCH (08:31)
[2019-05-03 20:00] VITALS: BP 100/63
[2019-05-03] MEDS: DIVALPROEX 250 MG TAB.ER.24H PO SCH (21:17)
[2019-05-03] MEDS: QUETIAPINE 25MG TABLET PO SCH (21:17)
[2019-05-04 07:05] VITALS: BP 98/63
[2019-05-04] MEDS ORDERED: ACAM333T7 PO (07:35)
[2019-05-04] MEDS ORDERED: SERT50TA28 PO (07:35)
[2019-05-04] MEDS ORDERED: NICO-485 TD (07:35)
[2019-05-04] MEDS ORDERED: DIVA250T14 PO (07:35)
[2019-05-04] MEDS ORDERED: QUET25TA7 PO (07:35)
[2019-05-04] MEDS: SERTRALINE 50MG TABLET PO SCH (08:39)
[2019-05-04] MEDS: ACAMPROSATE 333 MG TABLET.DR PO SCH (08:39)
[2019-05-04] MEDS: NICOTINE 7 MG/24 HR PATCH.TD24 TD SCH (08:39)
== END 2019-05-04 09:10 | disposition home or self-care (01) | DRG 885 ==
LOC: 3E 17:39
PROVIDERS: ADMIT Psychiatry & Neurology Psychosomatic Medicine; ATTEND Psychiatry & Neurology Psychosomatic Medicine
DX: F31.30 Bipolar disorder, current episode depressed, mild or moderate severity, unspecified (principal); K72.00 Acute and subacute hepatic failure without coma; R45.851 Suicidal ideations; T39.312A Poisoning by propionic acid derivatives, intentional self-harm, initial encounter; T39.391A Poisoning by other nonsteroidal anti-inflammatory drugs [NSAID], accidental (unintentional), initial encounter; F20.9 Schizophrenia, unspecified; F17.210 Nicotine dependence, cigarettes, uncomplicated; G40.909 Epilepsy, unspecified, not intractable, without status epilepticus; F10.20 Alcohol dependence, uncomplicated; E78.5 Hyperlipidemia, unspecified; F12.90 Cannabis use, unspecified, uncomplicated; F15.21 Other stimulant dependence, in remission; F90.9 Attention-deficit hyperactivity disorder, unspecified type; G47.00 Insomnia, unspecified; Z98.2 Presence of cerebrospinal fluid drainage device; Z79.899 Other long term (current) drug therapy; Z59.0 Homelessness; Y92.89 Other specified places as the place of occurrence of the external cause; Z88.8 Allergy status to other drugs, medicaments and biological substances
CPT/HCPCS: 36415; 71045; 80048; 80053; 80061; 80076; 82140; 82607; 84439; 84443; 85025; 86592

== ENCOUNTER 2019-10-20 23:46 | Emergency (ER) | payer MEDICARE ==
[~2019-10-20] VITALS: Ht 180.3 cm; Wt 85.0 kg
[~2019-10-20 23:46] MED LIST changes: +ACAM333T7 PO; +DIVA250T14 PO; +NICO-485 TD; +QUET25TA7 PO; +SERT50TA28 PO
[2019-10-20] MEDS ORDERED: LIDOCAINE-MPF 1%, 5ML ONE (23:52)
[2019-10-20 23:54] VITALS: BP 120/72
[2019-10-20] MEDS ORDERED: DIVA250T4 PO (23:59)
[2019-10-21] MEDS ORDERED: DIPH,PERTUSS(ACELL),TET VAC/PF 0.5 ML IM-VACC ONE ×2 (00:07)
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
--- NOTE | 2019-10-21 00:56 | NUR ---
PATIENT MEDICATED PER EMAR, TOLERATED WELL. CALL LIGHT IN REACH, DENIES NEEDS AT THIS TIME.
--- NOTE | 2019-10-21 01:03 | NUR ---
TECH TO ROOM TO CLEAN AND SET UP FOR SUTURES
--- NOTE | 2019-10-21 01:16 | NUR ---
PA TO ROOM TO SUTURE HEAD LAC
[2019-10-21] MEDS ORDERED: NEOSPORIN OINT. PKT 1 PACKET ONE (01:53)
== END 2019-10-21 02:03 | disposition home or self-care (01) ==
LOC: ED 10-21 00:38
DX: S01.81XA Laceration without foreign body of other part of head, initial encounter (principal); Z59.0 Homelessness; Y04.8XXA Assault by other bodily force, initial encounter; Y93.89 Activity, other specified; Y92.89 Other specified places as the place of occurrence of the external cause; Y99.8 Other external cause status
CPT/HCPCS: 12051; 90471; 90715; 99284

== ENCOUNTER 2021-01-24 14:17 | Inpatient (IN) | payer MEDICARE ==
[~2021-01-24] VITALS: Ht 182.9 cm; Wt 99.1 kg
[~2021-01-24 14:17] MED LIST changes: +DIVA250T4 PO; -FOLI-17 PO; +FOLI1TAB32 PO; -OXYC5TAB3 PO; +OXYC5TAB98 PO
[2021-01-24] MEDS ORDERED: NALOXONE 0.4 MG/ML, 1ML IVPush PRN (14:30)
[2021-01-24] MEDS ORDERED: SODIUM CHLORIDE 0.9% 1,000ML IVBOLUS ONE ×3 (14:30→17:00)
[2021-01-24] MEDS ORDERED: LORazepam 2 MG/ML, 1ML ONE (14:32)
[2021-01-24] MEDS ORDERED: ACETAMINOPHEN 325 MG SUPP ONE (14:37)
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
--- NOTE | 2021-01-24 14:39 | NUR ---
PER DR CARLIN
[2021-01-24] MEDS ORDERED: PIPERACILLIN/TAZO/PMX 3.375GM 50 ML ONE (14:50)
[2021-01-24 14:55] LABS: MEAN CORPUSCULAR HEMOGLOBIN 30.6 pg (27.5-34.5); MEAN CORPUSCULAR HGB CONC 33.9 g/dL (33.2-36.2); MEAN PLATELET VOLUME 9.3 fL (7.4-10.4); PLATELET COUNT 184 x10^3/uL (130-400); RED BLOOD COUNT 4.96 x10^6/uL (4.38-5.82); RED CELL DISTRIBUTION WIDTH 14.7 % (9.4-14.8)
--- NOTE | 2021-01-24 14:56 | NUR ---
BOTH BLOOD CULTURES DRAWN BEFORE ABX GIVEN
[2021-01-24] MEDS ORDERED: ACETAMINOPHEN 650 MG SUPP PR PRN (15:00)
[2021-01-24] MEDS ORDERED: PIPERACILLIN/TAZO/PMX 3.375GM 50 ML IV ONE (15:00)
[2021-01-24] MEDS ORDERED: VANCOMYCIN PER PHARMACY MC PRN ×2 (15:00→20:00)
[2021-01-24] MEDS ORDERED: VANCOMYCIN 1,600 MG in SODIUM CHLORIDE 0.9% 250 ML IV ONE (15:00)
[2021-01-24 15:07] LABS: ALANINE AMINOTRANSFERASE 46 U/L (12-78); ALBUMIN 3.6 g/dL (3.4-5.0); ANION GAP 14 mmol/L (5-15); CALCIUM 8.3 mg/dL (8.5-10.1); CHLORIDE 117 mmol/L (98-107); CREATININE 2.37 mg/dL (0.7-1.3)
--- NOTE | 2021-01-24 15:09 | NUR ---
PT HAS BUGS CRAWLING IN HAIR
--- NOTE | 2021-01-24 15:14 | NUR ---
PT IS NOT ABLE TO ANSWER TRIAGE QUESTIONS
--- NOTE | 2021-01-24 15:16 | NUR ---
COOL MEASURES WITH ICE IN GROIN AND ARMPITS.
[2021-01-24 15:17] LABS: ALKALINE PHOSPHATASE 53 U/L (45-117); BILIRUBIN,TOTAL 0.5 mg/dL (0.2-1.0); TOTAL PROTEIN 7.6 g/dL (6.4-8.2)
--- NOTE | 2021-01-24 15:23 | NUR ---
PT BECOMING MORE ALERT. PT REPORTS HIS NAME IS TENISHA. CT CALLED. PT READY FOR CT.
[2021-01-24 15:25] LABS: RAPID INFLUENZA A Negative (Negative); RAPID INFLUENZA B Negative (Negative)
[2021-01-24 15:28] LABS: MD YES
--- NOTE | 2021-01-24 15:30 | NUR ---
dr giron in room
--- NOTE | 2021-01-24 15:59 | NUR ---
PT BACK FROM CT. RADIOLOGY CALLED FOR XRAY. VS STABLE. PT BECOMING MORE ALERT. PT REPORTS HE HAS A BRAIN SHUNT. TREE TOPPER ON. SINUS TACH NOTED. WILL CONTINUE TO MONITOR.
--- NOTE | 2021-01-24 16:01 | NUR ---
PT HAS ONE BAG OF BELONGINGS THAT WERE PLACED INTO A CLEAR PLASTIC BAG X2 WITH PATIENT STICKER. BELONGINGS IN ROOM.
--- NOTE | 2021-01-24 16:29 | NUR ---
DR HAWLEY HAS UPDATED PATIENT.
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
[2021-01-24 16:50] LABS: MICROSCOPIC INDICATED
[2021-01-24 16:54] LABS: AMPHETAMINE SCREEN, URINE Positive (Negative); BARBITURATE SCREEN, URINE Negative (Negative); BENZODIAZEPINE SCREEN, URINE Negative (Negative); CANNABINOID SCREEN, URINE Negative (Negative); COCAINE SCREEN, URINE Negative (Negative); METHADONE SCREEN, URINE Negative (Negative); OPIATE SCREEN, URINE Negative (Negative)
[2021-01-24 16:55] LABS: BAND#(MANUAL) 2.72 x10^3/uL; BANDS%(MANUAL) 12 % (0-7); LYMPH#(MANUAL) 1.59 x10^3/uL (1-3.4); LYMPHS% (MANUAL) 7 % (22-44); MONOS#(MANUAL) 2.72 x10^3/uL (0.3-2.7); MONOS% (MANUAL) 12 % (2-9); SEG#(MANUAL) 15.66 x10^3/uL (1.8-6.8); SEGS% (MANUAL) 69 % (42-75)
[2021-01-24 16:56] LABS: <PLATELET ESTIMATE> ADEQUATE; <PLT MORPHOLOGY> NORMAL PLT MORPH; <RBC MORPHOLOGY> NORMAL
--- NOTE | 2021-01-24 17:07 | NUR ---
PT IS NOW A&O X3. VS STABLE. PT IS ON A NC NOW AT 5L. EMBEDDED HARDWARE ENGINEER ON. SINUS TACH NOTED. DR HAWLEY AWARE OF VS. WILL CONTINUE TO MONITOR.
[2021-01-24] MEDS ORDERED: MIDAZOLAM 1 MG/ML, 2ML ONE (17:25)
[2021-01-24] MEDS ORDERED: MIDAZOLAM 1 MG/ML, 2ML IVPush ONE (17:30)
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
[2021-01-24] MEDS ORDERED: LIDOCAINE-MPF 1%, 5ML ONE (17:47)
--- NOTE | 2021-01-24 18:00 | NUR ---
dr giron okayed patient to have a sprite.
--- NOTE | 2021-01-24 18:22 | NUR ---
PT USED URINAL. VS STABLE. WORLD RENOWNED CHEF AND RESTAURANT OWNER ON. SINUS TACH NOTED. WILL CONTINUE TO MONITOR.
[2021-01-24] MEDS ORDERED: PERMETHRIN CRM 5%, 60GM TP SCH (20:00)
[2021-01-24] MEDS ORDERED: ACETAMINOPHEN 325 MG TABLET PO PRN (20:00)
[2021-01-24] MEDS ORDERED: PERMETHRIN CRM 5%, 60GM TP ONE (20:00)
[2021-01-24] MEDS ORDERED: POLYETHYLENE GLYCOL 17 GM PACKET PO PRN (20:00)
[2021-01-24] MEDS ORDERED: PHARMACOKINETIC MONITORING MC PRN (20:00)
[2021-01-24] MEDS ORDERED: BISACODYL 10 MG SUPP PR PRN (20:00)
[2021-01-24] MEDS ORDERED: PHARMACOKINETIC CONSULTATION MC ONE (20:00)
[2021-01-24] MEDS ORDERED: PIPERONYL BUTOXIDE/PYRETHRINS 4OZ. SHAMPOO TP SCH (20:00)
[2021-01-24] MEDS ORDERED: ONDANSETRON 2MG/ML, 2ML IVPush PRN (20:00)
[2021-01-24] MEDS: HEPARIN 5,000 UNITS/ML, 1ML SQ SCH (20:17)
[2021-01-24] MEDS: LACTULOSE 20 GM/30 ML UDC PO SCH (20:18)
[2021-01-24] MEDS: SODIUM CHLORIDE 0.45% 1,000 ML IV SCH (20:28)
[2021-01-24 22:17] VITALS: BP 111/71
[2021-01-24] MEDS: PIPERACILLIN/TAZO/PMX 3.375GM 50 ML IV SCH (23:05)
[2021-01-25 00:33] VITALS: BP 108/67
[2021-01-25] MEDS: SODIUM CHLORIDE 0.45% 1,000 ML IV SCH ×4 (02:21→23:27)
[2021-01-25] MEDS: HEPARIN 5,000 UNITS/ML, 1ML SQ SCH ×3 (04:42→21:21)
[2021-01-25 04:48] LABS: CHLORIDE,URINE RANDOM 132 mmol/L; POTASSIUM,URINE RANDOM 44 mmol/L; SODIUM,URINE RANDOM 98 mmol/L
[2021-01-25] MEDS: PIPERACILLIN/TAZO/PMX 3.375GM 50 ML IV SCH ×4 (04:50→23:27)
[2021-01-25 05:13] LABS: BASOPHILS % (AUTO) 1 % (0-1); EOSINOPHILS % (AUTO) 0 % (1-7); LYMPHOCYTES % (AUTO) 13 % (22-44); MEAN CORPUSCULAR HEMOGLOBIN 30.8 pg (27.5-34.5); MEAN CORPUSCULAR HGB CONC 34.8 g/dL (33.2-36.2); MEAN PLATELET VOLUME 9.1 fL (7.4-10.4); MONOCYTES % (AUTO) 8 % (2-9); NEUTROPHILS % (AUTO) 79 % (42-75); PLATELET COUNT 76 x10^3/uL (130-400); RED BLOOD COUNT 4.07 x10^6/uL (4.38-5.82); RED CELL DISTRIBUTION WIDTH 14.2 % (9.4-14.8)
[2021-01-25 05:17] LABS: MD NO
[2021-01-25 05:36] LABS: ALBUMIN 2.8 g/dL (3.4-5.0); ANION GAP 7 mmol/L (5-15); CALCIUM 7.5 mg/dL (8.5-10.1); CHLORIDE 114 mmol/L (98-107)
[2021-01-25 06:04] LABS: CREATININE 0.95 mg/dL (0.7-1.3)
[2021-01-25 06:05] LABS: ALANINE AMINOTRANSFERASE 98 U/L (12-78); ALKALINE PHOSPHATASE 39 U/L (45-117); BILIRUBIN,TOTAL 0.6 mg/dL (0.2-1.0)
[2021-01-25 06:53] LABS: CREATINE KINASE, TOTAL 32913 U/L (39-308)
[2021-01-25 08:03] VITALS: BP 99/76
[2021-01-25] MEDS: LACTULOSE 20 GM/30 ML UDC PO SCH ×3 (09:40→21:21)
[2021-01-25] MEDS: SENNA/DOCUSATE TABLET PO SCH (09:40)
[2021-01-25 13:33] VITALS: BP 94/70
[2021-01-25 20:35] VITALS: BP 92/65
[2021-01-26 03:00] VITALS: BP 98/64
[2021-01-26] MEDS: HEPARIN 5,000 UNITS/ML, 1ML SQ SCH (04:45)
[2021-01-26] MEDS: PIPERACILLIN/TAZO/PMX 3.375GM 50 ML IV SCH ×3 (04:45→18:18)
[2021-01-26] MEDS: SODIUM CHLORIDE 0.45% 1,000 ML IV SCH ×3 (04:46→20:29)
[2021-01-26 05:55] LABS: BASOPHILS % (AUTO) 0 % (0-1); EOSINOPHILS % (AUTO) 0 % (1-7); LYMPHOCYTES % (AUTO) 21 % (22-44); MD NO; MEAN CORPUSCULAR HEMOGLOBIN 31.3 pg (27.5-34.5); MONOCYTES % (AUTO) 6 % (2-9); NEUTROPHILS % (AUTO) 73 % (42-75); PLATELET COUNT 79 x10^3/uL (130-400); RED BLOOD COUNT 3.63 x10^6/uL (4.38-5.82); RED CELL DISTRIBUTION WIDTH 14.5 % (9.4-14.8)
[2021-01-26 06:05] LABS: ALBUMIN 2.7 g/dL (3.4-5.0); ANION GAP 4 mmol/L (5-15); CALCIUM 7.8 mg/dL (8.5-10.1); CHLORIDE 109 mmol/L (98-107)
[2021-01-26 06:36] LABS: ALANINE AMINOTRANSFERASE 177 U/L (12-78); ALKALINE PHOSPHATASE 36 U/L (45-117); BILIRUBIN,TOTAL 0.8 mg/dL (0.2-1.0); CREATININE 0.81 mg/dL (0.7-1.3); TOTAL PROTEIN 5.6 g/dL (6.4-8.2)
[2021-01-26] MEDS ORDERED: DEXAMETHASONE 4 MG/ML, 1ML IVPush ONE (06:52)
[2021-01-26 07:31] LABS: CREATINE KINASE, TOTAL 31432 U/L (39-308)
[2021-01-26 08:01] VITALS: BP 98/64
[2021-01-26] MEDS: LACTULOSE 20 GM/30 ML UDC PO SCH ×3 (08:29→20:29)
[2021-01-26] MEDS: VANCOMYCIN 1,800 MG in SODIUM CHLORIDE 0.9% 250 ML IV SCH ×2 (08:29→20:29)
[2021-01-26] MEDS: CHOLECALCIFEROL 5,000u TAB PO SCH (08:29)
[2021-01-26] MEDS: THIAMINE 100MG TABLET PO SCH (08:29)
[2021-01-26] MEDS: ZINC SULFATE 220 MG CAPSULE PO SCH (08:29)
[2021-01-26] MEDS: DEXAMETHASONE 4 MG/ML, 1ML IVPush SCH (09:00)
[2021-01-26] MEDS: SENNA/DOCUSATE TABLET PO SCH (09:00)
[2021-01-26 12:58] VITALS: BP 96/63
[2021-01-26 23:53] VITALS: BP 94/61
[2021-01-27] MEDS: PIPERACILLIN/TAZO/PMX 3.375GM 50 ML IV SCH ×2 (00:30→05:59)
[2021-01-27 01:36] VITALS: BP 94/61
[2021-01-27 06:00] LABS: BASOPHILS % (AUTO) 0 % (0-1); EOSINOPHILS % (AUTO) 0 % (1-7); LYMPHOCYTES % (AUTO) 24 % (22-44); MEAN CORPUSCULAR HEMOGLOBIN 31.4 pg (27.5-34.5); MEAN CORPUSCULAR HGB CONC 35.7 g/dL (33.2-36.2); MEAN PLATELET VOLUME 9.2 fL (7.4-10.4); MONOCYTES % (AUTO) 6 % (2-9); NEUTROPHILS % (AUTO) 69 % (42-75); PLATELET COUNT 102 x10^3/uL (130-400); RED BLOOD COUNT 3.45 x10^6/uL (4.38-5.82); RED CELL DISTRIBUTION WIDTH 14.4 % (9.4-14.8)
[2021-01-27 06:09] LABS: MD NO
[2021-01-27 06:10] LABS: CHLORIDE 109 mmol/L (98-107)
[2021-01-27 06:27] LABS: ALANINE AMINOTRANSFERASE 145 U/L (12-78); ALBUMIN 2.6 g/dL (3.4-5.0); ALKALINE PHOSPHATASE 37 U/L (45-117); ANION GAP 4 mmol/L (5-15); BILIRUBIN,TOTAL 0.3 mg/dL (0.2-1.0); CREATININE 0.75 mg/dL (0.7-1.3)
[2021-01-27] MEDS ORDERED: REMDESIVIR 200 MG in SODIUM CHLORIDE 0.9% 250 ML IVPB ONE (07:00)
[2021-01-27 07:01] LABS: HCT (SEDRATE) 30.4 % (39.2-51.8)
[2021-01-27 07:30] VITALS: BP 97/60
[2021-01-27] MEDS: SODIUM CHLORIDE 0.45% 1,000 ML IV SCH (10:22)
[2021-01-27] MEDS: LACTULOSE 20 GM/30 ML UDC PO SCH (10:23)
[2021-01-27] MEDS: ZINC SULFATE 220 MG CAPSULE PO SCH (10:23)
[2021-01-27] MEDS: CHOLECALCIFEROL 5,000u TAB PO SCH (10:23)
[2021-01-27] MEDS: SENNA/DOCUSATE TABLET PO SCH (10:23)
[2021-01-27] MEDS: THIAMINE 100MG TABLET PO SCH (10:23)
[2021-01-27] MEDS: DEXAMETHASONE 4 MG/ML, 1ML IVPush SCH (10:31)
[2021-01-27 12:15] VITALS: BP 95/62
[2021-01-27] MEDS: AZITHROMYCIN 500 MG TABLET PO SCH (12:39)
[2021-01-27] MEDS: CEFTRIAXONE PMX 2GM/50ML 50 ML IVPB SCH (12:42)
[2021-01-27] MEDS: DIVALPROEX 500 MG TAB.ER.24H PO SCH (19:53)
[2021-01-27 20:47] VITALS: BP 97/61
[2021-01-28 01:10] VITALS: BP 98/60
[2021-01-28 05:06] LABS: BASOPHILS % (AUTO) 0 % (0-1); EOSINOPHILS % (AUTO) 0 % (1-7); LYMPHOCYTES % (AUTO) 31 % (22-44); MEAN CORPUSCULAR HEMOGLOBIN 31.7 pg (27.5-34.5); MEAN CORPUSCULAR HGB CONC 35.4 g/dL (33.2-36.2); MONOCYTES % (AUTO) 5 % (2-9); NEUTROPHILS % (AUTO) 64 % (42-75); PLATELET COUNT 132 x10^3/uL (130-400); RED BLOOD COUNT 3.55 x10^6/uL (4.38-5.82); RED CELL DISTRIBUTION WIDTH 14.1 % (9.4-14.8)
[2021-01-28 05:07] LABS: MD NO
[2021-01-28 05:14] LABS: INTERNATIONAL NORMALIZED RATIO 0.97 (0.93-1.1); PROTHROMBIN TIME 10.4 Seconds (9.6-11.5)
[2021-01-28 05:17] LABS: CHLORIDE 110 mmol/L (98-107)
[2021-01-28 05:29] LABS: ALANINE AMINOTRANSFERASE 132 U/L (12-78); ALBUMIN 2.9 g/dL (3.4-5.0); ALKALINE PHOSPHATASE 35 U/L (45-117); ANION GAP 4 mmol/L (5-15); BILIRUBIN,TOTAL 0.3 mg/dL (0.2-1.0); CALCIUM 8.1 mg/dL (8.5-10.1); CREATININE 0.74 mg/dL (0.7-1.3); TOTAL PROTEIN 6.5 g/dL (6.4-8.2)
[2021-01-28 08:16] VITALS: BP 101/67
[2021-01-28] MEDS: DEXAMETHASONE 4 MG/ML, 1ML IVPush SCH (10:00)
[2021-01-28] MEDS: REMDESIVIR 100 MG in SODIUM CHLORIDE 0.9% 250 ML IVPB SCH (10:00)
[2021-01-28] MEDS: THIAMINE 100MG TABLET PO SCH (10:00)
[2021-01-28] MEDS: AZITHROMYCIN 500 MG TABLET PO SCH (10:00)
[2021-01-28] MEDS: SENNA/DOCUSATE TABLET PO SCH (10:00)
[2021-01-28] MEDS: LACTULOSE 20 GM/30 ML UDC PO SCH (10:00)
[2021-01-28] MEDS: ENOXAPARIN 40 MG/0.4 ML SQ SCH (10:01)
[2021-01-28] MEDS: ZINC SULFATE 220 MG CAPSULE PO SCH (10:01)
[2021-01-28] MEDS: CHOLECALCIFEROL 5,000u TAB PO SCH (10:01)
[2021-01-28 11:57] VITALS: BP 94/60
[2021-01-28] MEDS: CEFTRIAXONE PMX 2GM/50ML 50 ML IVPB SCH (12:15)
[2021-01-28] MEDS: DIVALPROEX 500 MG TAB.ER.24H PO SCH (19:57)
[2021-01-28 20:00] VITALS: BP 95/64
[2021-01-29 04:00] VITALS: BP 100/76
[2021-01-29 06:27] LABS: ALANINE AMINOTRANSFERASE 151 U/L (12-78); ALBUMIN 2.9 g/dL (3.4-5.0); ANION GAP 7 mmol/L (5-15); CALCIUM 8.5 mg/dL (8.5-10.1); CHLORIDE 111 mmol/L (98-107)
[2021-01-29 06:29] LABS: ALKALINE PHOSPHATASE 40 U/L (45-117); BILIRUBIN,TOTAL 0.2 mg/dL (0.2-1.0); TOTAL PROTEIN 6.5 g/dL (6.4-8.2)
[2021-01-29] MEDS ORDERED: POTASSIUM CHLORIDE 20 MEQ TAB.ER.PRT PO ONE (07:00)
[2021-01-29] MEDS: DEXAMETHASONE 4 MG/ML, 1ML IVPush SCH (07:51)
[2021-01-29] MEDS: AZITHROMYCIN 500 MG TABLET PO SCH (07:51)
[2021-01-29] MEDS: SENNA/DOCUSATE TABLET PO SCH (07:51)
[2021-01-29] MEDS: THIAMINE 100MG TABLET PO SCH (07:51)
[2021-01-29] MEDS: REMDESIVIR 100 MG in SODIUM CHLORIDE 0.9% 250 ML IVPB SCH (07:51)
[2021-01-29] MEDS: DIVALPROEX 500 MG TAB.ER.24H PO SCH (07:52)
[2021-01-29] MEDS: LACTULOSE 20 GM/30 ML UDC PO SCH (07:52)
[2021-01-29] MEDS: ZINC SULFATE 220 MG CAPSULE PO SCH (07:52)
[2021-01-29] MEDS: CHOLECALCIFEROL 5,000u TAB PO SCH (07:52)
[2021-01-29] MEDS: ENOXAPARIN 40 MG/0.4 ML SQ SCH (07:52)
[2021-01-29 08:22] VITALS: BP 110/62
[2021-01-29] MEDS: CEFTRIAXONE PMX 2GM/50ML 50 ML IVPB SCH (13:15)
[2021-01-29 13:28] VITALS: BP 111/67
[2021-01-29 20:02] VITALS: BP 120/79
[2021-01-30 02:26] VITALS: BP 111/73
[2021-01-30 05:47] LABS: CHLORIDE 108 mmol/L (98-107)
[2021-01-30 05:54] LABS: ALANINE AMINOTRANSFERASE 150 U/L (12-78); ALBUMIN 2.9 g/dL (3.4-5.0); ALKALINE PHOSPHATASE 41 U/L (45-117); ANION GAP 8 mmol/L (5-15); BILIRUBIN,TOTAL 0.3 mg/dL (0.2-1.0); CALCIUM 8.1 mg/dL (8.5-10.1); CREATININE 0.77 mg/dL (0.7-1.3); TOTAL PROTEIN 6.6 g/dL (6.4-8.2)
[2021-01-30 06:26] VITALS: BP 99/66
[2021-01-30] MEDS: REMDESIVIR 100 MG in SODIUM CHLORIDE 0.9% 250 ML IVPB SCH (07:50)
[2021-01-30] MEDS: ENOXAPARIN 40 MG/0.4 ML SQ SCH (09:00)
[2021-01-30] MEDS: LACTULOSE 20 GM/30 ML UDC PO SCH (09:46)
[2021-01-30] MEDS: SENNA/DOCUSATE TABLET PO SCH (09:47)
[2021-01-30] MEDS: DEXAMETHASONE 4 MG/ML, 1ML IVPush SCH (09:47)
[2021-01-30] MEDS: CHOLECALCIFEROL 5,000u TAB PO SCH (09:47)
[2021-01-30] MEDS: DIVALPROEX 500 MG TAB.ER.24H PO SCH (09:47)
[2021-01-30] MEDS: AZITHROMYCIN 500 MG TABLET PO SCH (09:47)
[2021-01-30] MEDS: THIAMINE 100MG TABLET PO SCH (09:48)
[2021-01-30] MEDS: ZINC SULFATE 220 MG CAPSULE PO SCH (09:54)
[2021-01-30] MEDS ORDERED: CEFD300C37 PO (10:17)
[2021-01-30] MEDS ORDERED: DIVA500T4 PO (10:17)
[2021-01-30 12:09] VITALS: BP 97/66
[2021-01-30] MEDS: CEFTRIAXONE PMX 2GM/50ML 50 ML IVPB SCH (12:11)
[2021-01-31] MEDS ORDERED: PIPERONYL BUTOXIDE/PYRETHRINS 4OZ. SHAMPOO TP ONE (21:00)
== END 2021-01-30 17:21 | disposition home or self-care (01) | DRG 871 ==
LOC: EDBD 14:17 → MERGE 14:17 → ED 17:22 → EDIP 18:09 → 4WST 19:22 → 4EST 01-25 00:15 → 3E 01-30 16:02
PROVIDERS: ADMIT Internal Medicine; ATTEND Hospitalist
PROC: 009U3ZX Drainage of Spinal Canal, Percutaneous Approach, Diagnostic (ICD-10-PCS; principal; 2021-01-24)
PROC: 0T9B70Z Drainage of Bladder with Drainage Device, Via Natural or Artificial Opening (ICD-10-PCS; 2021-01-24)
PROC: XW033E5 Introduction of Remdesivir Anti-infective into Peripheral Vein, Percutaneous Approach, New Technology Group 5 (ICD-10-PCS; 2021-01-27)
DX: A41.89 Other specified sepsis (principal); U07.1 COVID-19; J96.01 Acute respiratory failure with hypoxia; G92 Toxic encephalopathy; J96.91 Respiratory failure, unspecified with hypoxia; J12.82 Pneumonia due to coronavirus disease 2019; L03.116 Cellulitis of left lower limb; N17.9 Acute kidney failure, unspecified; M62.82 Rhabdomyolysis; L03.311 Cellulitis of abdominal wall; K56.7 Ileus, unspecified; E72.20 Disorder of urea cycle metabolism, unspecified; F31.9 Bipolar disorder, unspecified; G40.909 Epilepsy, unspecified, not intractable, without status epilepticus; Q03.9 Congenital hydrocephalus, unspecified; K72.90 Hepatic failure, unspecified without coma; L01.00 Impetigo, unspecified; F98.8 Other specified behavioral and emotional disorders with onset usually occurring in childhood and adolescence; R16.1 Splenomegaly, not elsewhere classified; D69.6 Thrombocytopenia, unspecified; D64.9 Anemia, unspecified; B86 Scabies; R65.20 Severe sepsis without septic shock; Z88.8 Allergy status to other drugs, medicaments and biological substances; Z98.2 Presence of cerebrospinal fluid drainage device; Z90.89 Acquired absence of other organs; Z59.0 Homelessness; Z87.891 Personal history of nicotine dependence
CPT/HCPCS: 36415; 70450; 71045; 71250; 72125; 74176; 80053; 80074; 80307; 80320; 81001; 82140; 82436; 82550; 82570; 82607; 82728; 82962; 83540; 83550; 83605; 83615; 83735; 84100; 84133; 84145; 84300; 84443; 85025; 85379; 85610; 85651; 86140; 87040; 87400; 93005; 96361; 96365; 96368; 96375; 99285; G0378; J0696; J1100; J1644; J1650; J2250; J2405; J2543; J3370; G0480; J7030; J7050; U0003

== ENCOUNTER 2021-05-19 19:39 | Emergency (ER) | payer MEDICARE, MEDICAID ==
[~2021-05-19] VITALS: Ht 180.3 cm; Wt 112.7 kg
[~2021-05-19 19:39] MED LIST changes: +CEFD300C37 PO; +DIVA500T4 PO
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
--- NOTE | 2021-05-19 20:55 | NUR ---
Pt resting in bed watching TV, sitter in view of pt, NADN, WCTM
[2021-05-19 21:03] LABS: BASOPHILS % (AUTO) 1 % (0-1); EOSINOPHILS % (AUTO) 0 % (1-7); LYMPHOCYTES % (AUTO) 18 % (22-44); MEAN CORPUSCULAR HEMOGLOBIN 30.9 pg (27.5-34.5); MEAN CORPUSCULAR HGB CONC 34.3 g/dL (33.2-36.2); MEAN PLATELET VOLUME 8.1 fL (7.4-10.4); MONOCYTES % (AUTO) 7 % (2-9); NEUTROPHILS % (AUTO) 75 % (42-75); PLATELET COUNT 265 x10^3/uL (130-400); RED BLOOD COUNT 5.49 x10^6/uL (4.38-5.82); RED CELL DISTRIBUTION WIDTH 14.2 % (9.4-14.8)
[2021-05-19 21:04] LABS: ALBUMIN 3.9 g/dL (3.4-5.0); ANION GAP 6 mmol/L (5-15); CALCIUM 8.6 mg/dL (8.5-10.1); CHLORIDE 109 mmol/L (98-107); CREATININE 0.81 mg/dL (0.7-1.3)
[2021-05-19 21:05] LABS: SALICYLATE LEVEL < 1.7 mg/dL (2.8-20.0)
[2021-05-19 21:06] LABS: AMPHETAMINE SCREEN, URINE Negative (Negative); BARBITURATE SCREEN, URINE Negative (Negative); BENZODIAZEPINE SCREEN, URINE Negative (Negative); CANNABINOID SCREEN, URINE Negative (Negative); COCAINE SCREEN, URINE Negative (Negative); METHADONE SCREEN, URINE Negative (Negative); OPIATE SCREEN, URINE Negative (Negative)
--- NOTE | 2021-05-19 22:43 | NUR ---
Pt awake and sitting up in bed, continues to watch TV, sitter in view of pt, NADN
--- NOTE | 2021-05-19 23:36 | NUR ---
Pt sitting up in bed, sitter in vieew of ptSAMY
--- NOTE | 2021-05-20 00:42 | NUR ---
Pt continues to sit in bed, sitter in view of pt, SAMY
--- NOTE | 2021-05-20 01:42 | NUR ---
pt restining in bed and watchin TV, sitter in view of pt
--- NOTE | 2021-05-20 02:31 | NUR ---
pt provided snacks and juice, ambulatory to restroom, sitter in view of pt.
--- NOTE | 2021-05-20 03:30 | NUR ---
Pt resting in bed with eyes closed, sitter in sight of pt, [facility]
--- NOTE | 2021-05-20 04:40 | NUR ---
Pt resting in bed with eyes closed, sitter in view of pt, WCTM
--- NOTE | 2021-05-20 05:09 | NUR ---
Report to Uri HUMPHRIES
--- NOTE | 2021-05-20 05:20 | NUR ---
Report from YANDEL York
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
[2021-05-20 06:01] VITALS: BP 125/87
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
--- NOTE | 2021-05-20 07:30 | NUR ---
PT MOVED TO ROOM 1 TO BE UNDER CONSTANT SUPERVISION OF SITTER. REPORT RC'VD FROM CRISTOBAL HUMPHRIES. PT RESTING IN [facility], MOVES INDEPENDENTLY, NO S/S OF DISTRESS AT THIS TIME.
--- NOTE | 2021-05-20 07:52 | NUR ---
PT UPDATED ON PLAN TO ADMIT TO [facility]. PT AGREEABLE TO PLAN. WATER PROVIDED. BREAKFAST TRAY ORDERED. COVID SWAB SENT TO LAB.
--- NOTE | 2021-05-20 08:46 | NUR ---
PSYCH TRAIN OPERATIONS MANAGER AT BS.
[2021-05-20] MEDS ORDERED: OLANZAPINE 10 MG TABLET PO SCH (09:00)
[2021-05-20] MEDS ORDERED: HYDROXYZINE PAMOATE 50MG CAP PO PRN (09:00)
[2021-05-20] MEDS ORDERED: OLANZAPINE 10 MG TABLET ONE (09:17)
--- NOTE | 2021-05-20 09:20 | NUR ---
PT MEDICATED PER ORDERS. REPORTED TO JANA HUMPHRIES IN U.
== END 2021-05-20 10:14 ==
LOC: ED 21:54 → EDIP 22:48 → UNDOADMOB 22:48 → ED 05-20 10:14
DX: R45.851 Suicidal ideations (principal); Z20.822 Contact with and (suspected) exposure to COVID-19; F20.9 Schizophrenia, unspecified; F31.9 Bipolar disorder, unspecified; Z87.891 Personal history of nicotine dependence
CPT/HCPCS: 36415; 80048; 80299; 80307; 80320; 80329; 82040; 85025; 87426; 99285; G0480

== ENCOUNTER 2021-05-20 08:05 | Inpatient (IN) | payer MEDICARE, MEDICAID ==
[~2021-05-20] VITALS: Ht 180.3 cm; Wt 105.8 kg
[2021-05-20] MEDS ORDERED: DOCUSATE 100 MG CAPSULE PO PRN (09:00)
[2021-05-20] MEDS ORDERED: NICOTINE 7 MG/24 HR PATCH.TD24 TD SCH (09:00)
[2021-05-20] MEDS ORDERED: ONDANSETRON ODT 4 MG PO PRN (09:00)
[2021-05-20] MEDS ORDERED: ACETAMINOPHEN 325 MG TABLET PO PRN (09:00)
[2021-05-20] MEDS ORDERED: POLYETHYLENE GLYCOL 17 GM PACKET PO PRN (09:00)
[2021-05-20 10:28] VITALS: BP 110/70
[2021-05-20] MEDS ORDERED: PLEASE ENTER HEIGHT AND WEIGHT MC SCH (10:30)
[2021-05-20] MEDS: DIVALPROEX 500 MG TABLET.DR PO SCH ×2 (15:27→20:05)
[2021-05-20 15:29] LABS: MICROSCOPIC AUTO
[2021-05-20 19:39] VITALS: BP 109/74
[2021-05-20] MEDS: QUETIAPINE 100MG TABLET PO SCH (20:05)
[2021-05-21 07:05] LABS: FREE T4 (FREE THYROXINE) 1.26 ng/dL (0.76-1.46)
[2021-05-21 07:33] VITALS: BP 109/74
[2021-05-21 07:35] VITALS: BP 101/66
[2021-05-21 07:38] LABS: CHOL/HDL RATIO 5.8; LDL/HDL RATIO 3.9 (0.5-3.0)
[2021-05-21] MEDS: SERTRALINE 50MG TABLET PO SCH (08:49)
[2021-05-21] MEDS: DIVALPROEX 500 MG TABLET.DR PO SCH ×2 (08:49→20:10)
[2021-05-21 19:35] VITALS: BP 106/65
[2021-05-21] MEDS: QUETIAPINE 100MG TABLET PO SCH (20:10)
[2021-05-22 07:16] VITALS: BP 107/67
[2021-05-22] MEDS: DIVALPROEX 500 MG TABLET.DR PO SCH ×2 (08:46→21:20)
[2021-05-22] MEDS: SERTRALINE 50MG TABLET PO SCH (08:46)
[2021-05-22 19:15] VITALS: BP 99/72
[2021-05-22 21:16] VITALS: BP 102/67
[2021-05-22] MEDS: QUETIAPINE 100MG TABLET PO SCH (21:20)
[2021-05-23 07:53] VITALS: BP 99/64
[2021-05-23] MEDS: SERTRALINE 50MG TABLET PO SCH (08:37)
[2021-05-23] MEDS: DIVALPROEX 500 MG TABLET.DR PO SCH ×2 (08:37→20:12)
[2021-05-23 19:31] VITALS: BP 106/69
[2021-05-23] MEDS: QUETIAPINE 100MG TABLET PO SCH (20:12)
[2021-05-24 07:20] VITALS: BP 108/69
[2021-05-24] MEDS: DIVALPROEX 500 MG TABLET.DR PO SCH ×2 (07:45→20:14)
[2021-05-24] MEDS: SERTRALINE 50MG TABLET PO SCH (07:45)
[2021-05-24 19:21] VITALS: BP 107/70
[2021-05-24] MEDS: QUETIAPINE 100MG TABLET PO SCH (20:14)
[2021-05-25 07:25] VITALS: BP 115/72
[2021-05-25] MEDS: DIVALPROEX 500 MG TABLET.DR PO SCH ×2 (08:11→20:24)
[2021-05-25] MEDS: SERTRALINE 50MG TABLET PO SCH (08:11)
[2021-05-25 18:36] VITALS: BP 102/65
[2021-05-25] MEDS: QUETIAPINE 100MG TABLET PO SCH (20:24)
[2021-05-26 07:20] VITALS: BP 108/73
[2021-05-26] MEDS: DIVALPROEX 500 MG TABLET.DR PO SCH ×2 (09:10→20:47)
[2021-05-26] MEDS: SERTRALINE 50MG TABLET PO SCH (09:10)
[2021-05-26 19:25] VITALS: BP 95/64
[2021-05-26 20:43] VITALS: BP 102/65
[2021-05-26] MEDS: QUETIAPINE 100MG TABLET PO SCH (20:48)
[2021-05-27 07:03] VITALS: BP 97/66
[2021-05-27] MEDS: SERTRALINE 50MG TABLET PO SCH (08:36)
[2021-05-27] MEDS: DIVALPROEX 500 MG TABLET.DR PO SCH ×2 (08:36→20:51)
[2021-05-27 19:37] VITALS: BP 101/67
[2021-05-27] MEDS: QUETIAPINE 100MG TABLET PO SCH (20:52)
[2021-05-28 07:07] VITALS: BP 109/72
[2021-05-28] MEDS: DIVALPROEX 500 MG TABLET.DR PO SCH ×2 (08:09→20:52)
[2021-05-28] MEDS: SERTRALINE 50MG TABLET PO SCH (08:09)
[2021-05-28 19:32] VITALS: BP 111/75
[2021-05-28] MEDS: QUETIAPINE 100MG TABLET PO SCH (20:52)
[2021-05-29 07:40] VITALS: BP 105/70
[2021-05-29] MEDS: DIVALPROEX 500 MG TABLET.DR PO SCH ×2 (08:27→20:01)
[2021-05-29] MEDS: SERTRALINE 50MG TABLET PO SCH (08:27)
[2021-05-29 19:39] VITALS: BP 105/70
[2021-05-29] MEDS: QUETIAPINE 100MG TABLET PO SCH (20:01)
[2021-05-30 07:26] VITALS: BP 103/68
[2021-05-30] MEDS: SERTRALINE 50MG TABLET PO SCH (08:27)
[2021-05-30] MEDS: DIVALPROEX 500 MG TABLET.DR PO SCH ×2 (08:28→21:03)
[2021-05-30 19:41] VITALS: BP 103/64
[2021-05-30] MEDS: QUETIAPINE 100MG TABLET PO SCH (21:03)
[2021-05-31 07:20] VITALS: BP 103/70
[2021-05-31] MEDS: DIVALPROEX 500 MG TABLET.DR PO SCH ×2 (08:39→20:37)
[2021-05-31] MEDS: SERTRALINE 50MG TABLET PO SCH (08:39)
[2021-05-31 19:44] VITALS: BP 118/77
[2021-05-31] MEDS: QUETIAPINE 100MG TABLET PO SCH (20:37)
[2021-06-01 07:22] VITALS: BP 112/70
[2021-06-01] MEDS: DIVALPROEX 500 MG TABLET.DR PO SCH ×2 (09:08→20:28)
[2021-06-01] MEDS: SERTRALINE 50MG TABLET PO SCH (09:08)
[2021-06-01 19:22] VITALS: BP 101/61
[2021-06-01] MEDS: QUETIAPINE 100MG TABLET PO SCH (20:28)
[2021-06-02 07:26] VITALS: BP 102/68
[2021-06-02] MEDS: SERTRALINE 50MG TABLET PO SCH (08:29)
[2021-06-02] MEDS: DIVALPROEX 500 MG TABLET.DR PO SCH ×2 (08:29→20:02)
[2021-06-02 19:21] VITALS: BP 110/62
[2021-06-02] MEDS: QUETIAPINE 100MG TABLET PO SCH (20:02)
[2021-06-03 07:23] VITALS: BP 103/68
[2021-06-03] MEDS: DIVALPROEX 500 MG TABLET.DR PO SCH ×2 (08:38→21:21)
[2021-06-03] MEDS: SERTRALINE 50MG TABLET PO SCH (08:38)
[2021-06-03 19:23] VITALS: BP 101/65
[2021-06-03] MEDS: QUETIAPINE 100MG TABLET PO SCH (21:21)
[2021-06-04 07:36] VITALS: BP 100/66
[2021-06-04] MEDS: DIVALPROEX 500 MG TABLET.DR PO SCH ×2 (09:12→20:38)
[2021-06-04] MEDS: SERTRALINE 50MG TABLET PO SCH (09:12)
[2021-06-04 19:29] VITALS: BP 114/71
[2021-06-04] MEDS: QUETIAPINE 100MG TABLET PO SCH (20:38)
[2021-06-05 07:06] VITALS: BP 103/67
[2021-06-05] MEDS: SERTRALINE 50MG TABLET PO SCH (08:32)
[2021-06-05] MEDS: DIVALPROEX 500 MG TABLET.DR PO SCH ×2 (08:32→20:26)
[2021-06-05] MEDS ORDERED: COVID-19 VAC,AD26(JANSSEN)/PF 0.5ML IM-VACC ONE (17:30)
[2021-06-05 20:06] VITALS: BP 99/69
[2021-06-05] MEDS: QUETIAPINE 100MG TABLET PO SCH (20:27)
[2021-06-06 07:30] VITALS: BP 95/61
[2021-06-06] MEDS: FLUOXETINE HCL 20 MG CAPSULE PO SCH (08:38)
[2021-06-06] MEDS: DIVALPROEX 500 MG TABLET.DR PO SCH ×2 (08:38→20:42)
[2021-06-06 15:31] LABS: MICROSCOPIC NOT IND
[2021-06-06 18:33] VITALS: BP 103/70
[2021-06-06] MEDS: QUETIAPINE 100MG TABLET PO SCH (20:42)
[2021-06-07 07:24] VITALS: BP 109/70
[2021-06-07] MEDS: DIVALPROEX 500 MG TABLET.DR PO SCH ×2 (09:02→20:14)
[2021-06-07] MEDS: FLUOXETINE HCL 20 MG CAPSULE PO SCH (09:02)
[2021-06-07 19:45] VITALS: BP 105/65
[2021-06-07] MEDS: DOXEPIN 25 MG CAPSULE PO SCH (20:14)
[2021-06-07] MEDS: QUETIAPINE 100MG TABLET PO SCH (20:14)
[2021-06-08 07:23] VITALS: BP 96/63
[2021-06-08] MEDS: DIVALPROEX 500 MG TABLET.DR PO SCH ×2 (09:46→20:47)
[2021-06-08] MEDS: FLUOXETINE HCL 20 MG CAPSULE PO SCH (09:46)
[2021-06-08 18:43] VITALS: BP 94/61
[2021-06-08] MEDS: QUETIAPINE 100MG TABLET PO SCH (20:47)
[2021-06-08] MEDS: DOXEPIN 25 MG CAPSULE PO SCH (20:47)
[2021-06-09 07:26] VITALS: BP 101/70
[2021-06-09] MEDS: DIVALPROEX 500 MG TABLET.DR PO SCH ×2 (08:50→20:54)
[2021-06-09] MEDS: FLUOXETINE HCL 20 MG CAPSULE PO SCH (08:50)
[2021-06-09 19:33] VITALS: BP 92/66
[2021-06-09 20:51] VITALS: BP 112/77
[2021-06-09] MEDS: DOXEPIN 25 MG CAPSULE PO SCH (20:53)
[2021-06-09] MEDS: QUETIAPINE 100MG TABLET PO SCH (20:54)
[2021-06-10 07:27] VITALS: BP 90/56
[2021-06-10] MEDS: FLUOXETINE HCL 20 MG CAPSULE PO SCH (08:37)
[2021-06-10] MEDS: DIVALPROEX 500 MG TABLET.DR PO SCH ×2 (08:37→20:12)
[2021-06-10 19:37] VITALS: BP 114/79
[2021-06-10] MEDS: DOXEPIN 25 MG CAPSULE PO SCH (20:11)
[2021-06-10] MEDS: QUETIAPINE 100MG TABLET PO SCH (20:12)
[2021-06-11 07:23] VITALS: BP 104/68
[2021-06-11] MEDS: FLUOXETINE HCL 20 MG CAPSULE PO SCH (08:36)
[2021-06-11] MEDS: DIVALPROEX 500 MG TABLET.DR PO SCH ×2 (08:37→20:41)
[2021-06-11 19:44] VITALS: BP 110/76
[2021-06-11] MEDS: QUETIAPINE 100MG TABLET PO SCH (20:41)
[2021-06-11] MEDS: DOXEPIN 25 MG CAPSULE PO SCH (20:42)
[2021-06-12 07:12] VITALS: BP 98/65
[2021-06-12] MEDS: FLUOXETINE HCL 20 MG CAPSULE PO SCH (08:29)
[2021-06-12] MEDS: DIVALPROEX 500 MG TABLET.DR PO SCH ×2 (08:29→20:35)
[2021-06-12 19:30] VITALS: BP 96/62
[2021-06-12 20:35] VITALS: BP 113/77
[2021-06-12] MEDS: QUETIAPINE 100MG TABLET PO SCH (20:35)
[2021-06-12] MEDS: DOXEPIN 25 MG CAPSULE PO SCH (20:35)
[2021-06-13 07:07] VITALS: BP 100/66
[2021-06-13] MEDS: FLUOXETINE HCL 20 MG CAPSULE PO SCH (08:38)
[2021-06-13] MEDS: DIVALPROEX 500 MG TABLET.DR PO SCH ×2 (08:38→20:24)
[2021-06-13 19:46] VITALS: BP 105/70
[2021-06-13] MEDS: DOXEPIN 25 MG CAPSULE PO SCH (20:24)
[2021-06-13] MEDS: QUETIAPINE 100MG TABLET PO SCH (20:24)
[2021-06-14 07:20] VITALS: BP 104/75
[2021-06-14] MEDS: FLUOXETINE HCL 20 MG CAPSULE PO SCH (08:29)
[2021-06-14] MEDS: DIVALPROEX 500 MG TABLET.DR PO SCH ×2 (08:29→19:53)
[2021-06-14 19:21] VITALS: BP 101/65
[2021-06-14] MEDS: QUETIAPINE 100MG TABLET PO SCH (19:53)
[2021-06-14] MEDS: DOXEPIN 25 MG CAPSULE PO SCH (19:53)
[2021-06-15 07:30] VITALS: BP 109/70
[2021-06-15] MEDS: DIVALPROEX 500 MG TABLET.DR PO SCH ×2 (09:12→20:10)
[2021-06-15] MEDS: FLUOXETINE HCL 20 MG CAPSULE PO SCH (09:13)
[2021-06-15 19:29] VITALS: BP 103/67
[2021-06-15] MEDS: QUETIAPINE 100MG TABLET PO SCH (20:10)
[2021-06-15] MEDS: DOXEPIN 25 MG CAPSULE PO SCH (20:10)
[2021-06-16 07:29] VITALS: BP 115/74
[2021-06-16] MEDS: FLUOXETINE HCL 20 MG CAPSULE PO SCH (08:17)
[2021-06-16] MEDS: DIVALPROEX 500 MG TABLET.DR PO SCH ×2 (08:17→20:34)
[2021-06-16 19:28] VITALS: BP 108/62
[2021-06-16] MEDS: QUETIAPINE 100MG TABLET PO SCH (20:34)
[2021-06-16] MEDS: DOXEPIN 25 MG CAPSULE PO SCH (20:34)
[2021-06-17 07:21] VITALS: BP_SYST 112; BP_SYST 114; BP_DIAS 75
[2021-06-17] MEDS: FLUOXETINE HCL 20 MG CAPSULE PO SCH (08:57)
[2021-06-17] MEDS: DIVALPROEX 500 MG TABLET.DR PO SCH ×2 (08:57→22:16)
[2021-06-17] MEDS ORDERED: DOXE25CA PO (14:55)
[2021-06-17] MEDS ORDERED: QUET100T PO (14:55)
[2021-06-17] MEDS ORDERED: FLUO20CA23 PO (14:55)
[2021-06-17] MEDS ORDERED: DIVA-61 PO (14:55)
[2021-06-17 19:10] VITALS: BP 97/66
[2021-06-17] MEDS: DOXEPIN 25 MG CAPSULE PO SCH (22:16)
[2021-06-17] MEDS: QUETIAPINE 100MG TABLET PO SCH (22:16)
[2021-06-18 07:50] VITALS: BP 115/77
[2021-06-18] MEDS: FLUOXETINE HCL 20 MG CAPSULE PO SCH (08:27)
[2021-06-18] MEDS: DIVALPROEX 500 MG TABLET.DR PO SCH (08:27)
== END 2021-06-18 14:10 | DRG 885 ==
LOC: 3E 10:14
PROVIDERS: ADMIT Psychiatry & Neurology Psychosomatic Medicine; ATTEND Psychiatry & Neurology Psychosomatic Medicine
DX: F31.5 Bipolar disorder, current episode depressed, severe, with psychotic features (principal); F11.20 Opioid dependence, uncomplicated; F15.20 Other stimulant dependence, uncomplicated; R45.851 Suicidal ideations; G40.909 Epilepsy, unspecified, not intractable, without status epilepticus; Z20.822 Contact with and (suspected) exposure to COVID-19; Z59.0 Homelessness; Z79.899 Other long term (current) drug therapy; Z86.16 Personal history of COVID-19; Z87.01 Personal history of pneumonia (recurrent); F10.10 Alcohol abuse, uncomplicated; F41.9 Anxiety disorder, unspecified; G47.00 Insomnia, unspecified; Z87.891 Personal history of nicotine dependence; Z91.5 Personal history of self-harm
CPT/HCPCS: 36415; 71045; 80048; 80061; 80299; 80307; 80320; 80329; 81001; 81003; 82040; 84439; 84443; 85025; 87426; 87635; 91303; 93005; 99285; U0005; G0480; Q0177; U0003